=== PATIENT | female | born 1955 | race Caucasian/White ===

== ENCOUNTER → 2018-06-23 09:17 | Outpatient (CLI) | payer OTHER, SELFPAY ==
[2018-06-23 10:12] LABS: Add Manual Diff / Slide Review NO; Basophils Percent Auto 1.1 % (0-2); Eosinophils Percent Auto 3.8 % (2-4); Hematocrit 42.5 % (36-46); Hemoglobin 14.2 g/dL (12.0-16.0); Lymphocytes Percent Auto 33.3 % (25-40); Mean Corpuscular HGB Conc 33.3 % (30-36); Mean Corpuscular Hemoglobin 30.1 PG (26-34); Mean Corpuscular Volume 90.4 fL (80-100); Monocytes Percent Auto 9.3 % (3-14); Neutrophils Absolute Auto 3100 /uL (3000-5900); Neutrophils Percent Auto 52.5 % (50-75); Platelet Count 325 X10^3/uL (150-400); Red Cell Distribution Width 14.1 % (11.6-14.8); White Blood Cell Count 5.9 X10^3/uL (4.5-11.0)
[2018-06-23 10:27] LABS: Alanine Aminotransferase 26 IU/L (9-52); Albumin 4.7 g/dL (3.5-5.0); Albumin Globulin Ratio 1.9 (1.0-2.8); Alkaline Phosphatase 55 U/L (38-126); Aspartate Aminotransferase 29 IU/L (14-36); BUN Creatinine Ratio 27.1 (6-22); Bilirubin Total 1.4 mg/dL (0.2-1.3); Blood Urea Nitrogen 19 mg/dL (7-17); Calcium 9.9 mg/dL (8.4-10.2); Carbon Dioxide 33 mmol/L (22-32); Chloride 102 mmol/L (98-107); Cholesterol 198 mg/dL (140-199); Estimated Glomerular Filt Rate > 60.0 mL/min (>60); Globulin 2.5 g/dL (1.7-4.1); Glucose 104 mg/dL (80-110); HDL Cholesterol 64 mg/dL (40-60); HEMOLYSIS < 15 (0-50); LDL Cholesterol Calculated 109 mg/dL (<100); Potassium 4.5 mmol/L (3.4-5.1); Sodium 146 mmol/L (137-145); Total Protein 7.2 g/dL (6.3-8.2); Triglycerides 123 mg/dL (35-150)
[2018-06-23 10:40] LABS: Appearance Urine UA CLEAR; Bilirubin Urine UA NEGATIVE (NEGATIVE); Color Urine UA YELLOW; Glucose Urine UA NEGATIVE (Normal); Ketones Urine UA NEGATIVE (NEGATIVE); Leukocyte Esterase Urine UA NEGATIVE (NEGATIVE); Nitrite Urine UA NEGATIVE (Negative); Occult Blood Urine UA NEGATIVE (Negative); Protein Urine UA NEGATIVE (Negative); Specific Gravity Urine UA <=1.005 (1.000-1.035); Urobilinogen Urine UA 0.2 E.U./dL (0.2)
[2018-06-23 10:57] LABS: Thyroid Stimulating Hormone 1.91 uIU/mL (0.47-4.68)
== END ==
PROVIDERS: PCP Family Medicine; Visit Provider Family Medicine
DX: E78.5 Hyperlipidemia, unspecified (principal); Z51.81 Encounter for therapeutic drug level monitoring
CPT/HCPCS: 36415; 80053; 80061; 81003; 84443; 85025

== ENCOUNTER 2018-10-04 09:45 | Outpatient (RCR) | payer OTHER, SELFPAY ==
--- NOTE | 2018-08-25 15:47 | PT.OIE ---
Current Diagnoses Pain in right shoulder (08/25/18) Pain in left shoulder (08/25/18) Pain in right arm (08/25/18) Pain in left arm (08/25/18) Past Medical History (Last Updated 08/10/18 @ 10:04 by MEDARDO Garcia) Obstructive sleep apnea of adult (Chronic ~2017) Primary insomnia (Chronic ~2012) Snoring (Resolved ~2012) Hyperlipidemia (Chronic) History of depression (Suspected) Provider Visit Care Team Role Provider Type Shauna Gomez DO Attending Provider Physician Family Provider Primary Care Provider Specialty: Family Practice Address: [address] [place] [address] Email: [email or web address] Physical Therapy Initial Evaluation PT-OP-A Visit Information Start: 08/25/18 12:00 Freq: Status: Active Protocol: Document 08/25/18 13:00 AMB (Rec: 08/31/18 09:40 AMB [email or web address]) Out-Patient Physical Therapy Visit Information Visit Information Visit Type Initial Evaluation Visit Start Time 13:00 Visit Stop Time 13:45 Total Visit Minutes 45 Visit Number 1 PT-OP-B Current Condition Start: 08/25/18 12:00 Freq: Status: Active Protocol: Document 08/25/18 13:00 AMB (Rec: 08/31/18 13:31 AMB [email or web address]) Current Condition History of Current Condition Onset Date 4 years ago Current Complaints R lateral arm pain with lifting History of Current Condition Rosa reports her arm pain started 4 years ago insidiously. She worked through it by lifting weights, but recently it has worsened. She notices it the most when lifting a suitcase, at night when trying to sleep, and does report sharp pain with brushing her hair. Treatment Goals Patient/Caregiver Goals Lift the arm without it hurting Prior Functional Status Baseline Function- ADL's Independent Baseline Function- Mobility Independent Current Functional Impairments (Reported) Functional Limitations- ADL's brushing her hair is painful with the right arm, sleeping is disrupted. Personal Factors Other Personal Factors That May Effect Right hand dominant with Therapy/Recovery history of R carpal tunnel release years ago PT-OP-C Subjective Start: 08/25/18 12:00 Freq: Status: Active Protocol: Document 08/25/18 13:00 AMB (Rec: 08/31/18 09:40 AMB [email or web address]) Patient Questionnaires Quick Dash- Upper Extremity Quick Dash UE Score 27 Quick Dash UE Impairment 20 to 39% Impaired (Score 20- 39) OP-PT Pain Assessment Location Right Shoulder Intensity 3 Scale Used Numeric (1 - 10) PT-OP-J Posture/Palpation/Skin Start: 08/25/18 12:00 Freq: Status: Active Protocol: Document 08/25/18 13:00 AMB (Rec: 08/31/18 13:41 AMB [email or web address]) Palpation Assessment Location One Palpation Location R shoulder Palpation Details painful with palpation over long head of biceps tendon. No tenderness noted at AC joint, scapula, or lateral point of shoulder. PT-OP-K Range of Motion Start: 08/25/18 12:00 Freq: Status: Active Protocol: Document 08/25/18 13:00 AMB (Rec: 08/31/18 13:41 AMB [email or web address]) Shoulder Goniometric Range of Motion Shoulder Measured in Degrees Right Passive Shoulder ROM WFL Yes PT-OP-L Special Tests Start: 08/25/18 12:00 Freq: Status: Active Protocol: Document 08/25/18 13:00 AMB (Rec: 08/31/18 13:41 AMB [email or web address]) Special Tests Shoulder Special Tests Empty Can Test Results negative bilaterally Emerson Emmett Impingement Test Results positive on the right PT-OP-M Strength Start: 08/25/18 12:00 Freq: Status: Active Protocol: Document 08/25/18 13:00 AMB (Rec: 08/31/18 13:41 AMB [email or web address]) Shoulder Strength Shoulder Manual Muscle Testing Right Flexion 3+ Fair+ Extension 5 Normal Abduction (C5) 4 Good External Rotation 3+ Fair+ Internal Rotation 5 Normal PT-OP-Q Treatments Start: 08/25/18 12:00 Freq: Status: Active Protocol: Document 08/25/18 13:00 AMB (Rec: 08/31/18 09:46 AMB [email or web address]) Therapeutic Exercises Prone Exercises 1 Prone Exercise Name Y Resistance 1# Reps/Minutes 10 Standing Exercises 2 Standing Exercise Name ER isometric Reps/Minutes 5x5 1 Standing Exercise Name bicep curl Reps/Minutes 10 PT-OP-T Assessment and Plan Start: 08/25/18 12:00 Freq: Status: Active Protocol: Document 08/25/18 13:00 AMB (Rec: 09/01/18 15:45 AMB [email or web address]) Physical Therapy Assessment Rehab Potential Rehabilitation Potential Good Evaluation Complexity Number of Personal Factors/Comorbidities 1-2 Number of Body Systems Impaired 3 Clinical Presentation at Evaluation Evolving Impairments Impairments Functional Activities Pain Strength Goals Three Impairment ADLs Short Term Goal (STG) Rosa will brush her hair with her right arm without an increase in pain. STG Duration 4 weeks Long-Term Goal (LTG) Rosa will sleep for 6 hours without waking up due to arm pain. LTG Duration 8 weeks Two Impairment Pain with lifting Long-Term Goal (LTG) Rosa will lift 20 pounds with good body mechanics with 2/10 pain or less. LTG Duration 8 weeks One Impairment Strength Short Term Goal (STG) Rosa will increase her shoulder strength to 4+/5 in all planes. STG Duration 4 weeks Assessment Summary Assessment Rosa presents with signs of shoulder impingement with weakness and pain with shoulder flexion and external rotation. Her arm pain as she describes it is likely radiating from the dysfunction at her shoulder. She will benefit from PT to strengthen her shoulder so she can return to lifting and sleeping without pain. Physical Therapy Plan Frequency and Duration Frequency of Treatment 1x/Week Duration of Treatment 8 weeks Plan of Care Start Date 08/25/18 Plan of Care End Date 10/20/18 Therapeutic Interventions Therapeutic Interventions Home Exercise Program Manual Therapy Neuromuscular Re-education Self-Care/Home Management Taping Therapeutic Activities Therapeutic Exercises Modalities Cold Pack/Ice Massage Electric Stimulation Hot Packs Next Visit Focus/Plan Next Note Type Treatment Note Next Visit Plan Progress shoulder strengthening
--- NOTE | 2018-08-25 15:48 | PT.OPPOC ---
Current Diagnoses Pain in right shoulder (08/25/18) Pain in left shoulder (08/25/18) Pain in right arm (08/25/18) Pain in left arm (08/25/18) Provider Visit Care Team Role Provider Type Shauna Gomez DO Attending Provider Physician Family Provider Primary Care Provider Specialty: Family Practice Address: [address] [place] [address], [id number] Email: [email or web address] Plan Of Care PT-OP-T Assessment and Plan Start: 08/25/18 12:00 Freq: Status: Active Protocol: Document 08/25/18 13:00 AMB (Rec: 09/01/18 15:45 AMB [email or web address]) Physical Therapy Assessment Rehab Potential Rehabilitation Potential Good Evaluation Complexity Number of Personal Factors/Comorbidities 1-2 Number of Body Systems Impaired 3 Clinical Presentation at Evaluation Evolving Impairments Impairments Functional Activities Pain Strength Goals Three Impairment ADLs Short Term Goal (STG) Rosa will brush her hair with her right arm without an increase in pain. STG Duration 4 weeks Jail Goal (LTG) Rosa will sleep for 6 hours without waking up due to arm pain. LTG Duration 8 weeks Two Impairment Pain with lifting Auto Body Man Goal (LTG) Rsoa will lift 20 pounds with good body mechanics with 2/10 pain or less. LTG Duration 8 weeks One Impairment Strength Short Term Goal (STG) Rosa will increase her shoulder strength to 4+/5 in all planes. STG Duration 4 weeks Assessment Summary Assessment Rosa presents with signs of shoulder impingement with weakness and pain with shoulder flexion and external rotation. Her arm pain as she describes it is likely radiating from the dysfunction at her shoulder. She will benefit from PT to strengthen her shoulder so she can return to lifting and sleeping without pain. Physical Therapy Plan Frequency and Duration Frequency of Treatment 1x/Week Duration of Treatment 8 weeks Plan of Care Start Date 08/25/18 Plan of Care End Date 10/20/18 Therapeutic Interventions Therapeutic Interventions Home Exercise Program Manual Therapy Neuromuscular Re-education Self-Care/Home Management Taping Therapeutic Activities Therapeutic Exercises Modalities Cold Pack/Ice Massage Electric Stimulation Hot Packs Next Visit Focus/Plan Next Note Type Treatment Note Next Visit Plan Progress shoulder strengthening Plan of Care Dates Plan of Care Start Date 08/25/18 Plan of Care End Date 10/20/18 Please Sign and Return: I have reviewed this Plan of Care and certify that the skilled therapy services above are required to meet the patient?s needs. Physician Signature Date Printed Name and Credentials Clinical Instructor Signature Printed Name and Credentials
--- NOTE | 2018-09-06 15:47 | PT.OTN ---
Current Diagnoses Pain in right shoulder (09/06/18) Pain in left shoulder (09/06/18) Pain in right arm (09/06/18) Pain in left arm (09/06/18) Physical Therapy Treatment Note PT-OP-A Visit Information Start: 08/25/18 12:00 Freq: Status: Active Protocol: Document 09/06/18 07:30 AMB (Rec: 09/06/18 08:48 AMB [email or web address]) Out-Patient Physical Therapy Visit Information Visit Information Visit Type Treatment Note Visit Start Time 07:30 Visit Stop Time 08:15 Total Visit Minutes 45 Visit Number 2 PT-OP-B Current Condition Start: 08/25/18 12:00 Freq: Status: Active Protocol: Document 08/25/18 13:00 AMB (Rec: 08/31/18 13:31 AMB [email or web address]) Current Condition History of Current Condition Onset Date 4 years ago Current Complaints R lateral arm pain with lifting History of Current Condition Rosa reports her arm pain started 4 years ago insidiously. She worked through it by lifting weights, but recently it has worsened. She notices it the most when lifting a suitcase, at night when trying to sleep, and does report sharp pain with brushing her hair. Treatment Goals Patient/Caregiver Goals Lift the arm without it hurting Prior Functional Status Baseline Function- ADL's Independent Baseline Function- Mobility Independent Current Functional Impairments (Reported) Functional Limitations- ADL's brushing her hair is painful with the right arm, sleeping is disrupted. Personal Factors Other Personal Factors That May Effect Right hand dominant with Therapy/Recovery history of R carpal tunnel release years ago PT-OP-C Subjective Start: 08/25/18 12:00 Freq: Status: Active Protocol: Document 09/06/18 07:30 AMB (Rec: 09/06/18 08:48 AMB [email or web address]) OP-PT Subjective Patient Comments Patient Comments Pt reports prone Y exercise is a bit painful PT-OP-J Posture/Palpation/Skin Start: 08/25/18 12:00 Freq: Status: Active Protocol: Document 08/25/18 13:00 AMB (Rec: 08/31/18 13:41 AMB [email or web address]) Palpation Assessment Location One Palpation Location R shoulder Palpation Details painful with palpation over long head of biceps tendon. No tenderness noted at AC joint, scapula, or lateral point of shoulder. PT-OP-K Range of Motion Start: 08/25/18 12:00 Freq: Status: Active Protocol: Document 08/25/18 13:00 AMB (Rec: 08/31/18 13:41 AMB [email or web address]) Shoulder Goniometric Range of Motion Shoulder Measured in Degrees Right Passive Shoulder ROM WFL Yes PT-OP-L Special Tests Start: 08/25/18 12:00 Freq: Status: Active Protocol: Document 08/25/18 13:00 AMB (Rec: 08/31/18 13:41 AMB [email or web address]) Special Tests Shoulder Special Tests Empty Can Test Results negative bilaterally Emerson Emmett Impingement Test Results positive on the right PT-OP-M Strength Start: 08/25/18 12:00 Freq: Status: Active Protocol: Document 08/25/18 13:00 AMB (Rec: 08/31/18 13:41 AMB [email or web address]) Shoulder Strength Shoulder Manual Muscle Testing Right Flexion 3+ Fair+ Extension 5 Normal Abduction (C5) 4 Good External Rotation 3+ Fair+ Internal Rotation 5 Normal PT-OP-Q Treatments Start: 08/25/18 12:00 Freq: Status: Active Protocol: Document 09/06/18 07:30 AMB (Rec: 09/07/18 15:47 AMB [email or web address]) Therapeutic Exercises Sidelying Exercises 2 Sidelying Exercise Name abd AROM Reps/Minutes 2x10 1 Sidelying Exercise Name ER AROM Reps/Minutes 2x10 Standing Exercises 4 Standing Exercise Name shoulder flexion Reps/Minutes 2x10 3 Standing Exercise Name rows Resistance #3 t band Reps/Minutes 2x10 1 Standing Exercise Name bicep curl Reps/Minutes 10 Manual Therapy Treatment Soft Tissue Mobilization 1 Body Location shoulder Mobilization Type Myofascial Release Comments lateral shoulder, biceps tendon, deltoid PT-OP-T Assessment and Plan Start: 08/25/18 12:00 Freq: Status: Active Protocol: Document 09/06/18 07:30 AMB (Rec: 09/07/18 15:47 AMB [email or web address]) Physical Therapy Assessment Assessment Summary Assessment Pt needed modifications to be able to do exercises without significant increase in pain. Physical Therapy Plan Next Visit Focus/Plan Next Note Type Treatment Note Next Visit Plan Progress shoulder strengthening as tolerated.
--- NOTE | 2018-09-21 10:09 | PT.OTN ---
Current Diagnoses Pain in right shoulder (09/20/18) Pain in left shoulder (09/20/18) Pain in right arm (09/20/18) Pain in left arm (09/20/18) Physical Therapy Treatment Note PT-OP-A Visit Information Start: 08/25/18 12:00 Freq: Status: Active Protocol: Document 09/20/18 13:00 AMB (Rec: 09/20/18 13:19 AMB [email or web address]) Out-Patient Physical Therapy Visit Information Visit Information Visit Type Treatment Note Visit Start Time 13:00 Visit Stop Time 13:45 Total Visit Minutes 45 Visit Number 3 PT-OP-B Current Condition Start: 08/25/18 12:00 Freq: Status: Active Protocol: Document 08/25/18 13:00 AMB (Rec: 08/31/18 13:31 AMB [email or web address]) Current Condition History of Current Condition Onset Date 4 years ago Current Complaints R lateral arm pain with lifting History of Current Condition Rosa reports her arm pain started 4 years ago insidiously. She worked through it by lifting weights, but recently it has worsened. She notices it the most when lifting a suitcase, at night when trying to sleep, and does report sharp pain with brushing her hair. Treatment Goals Patient/Caregiver Goals Lift the arm without it hurting Prior Functional Status Baseline Function- ADL's Independent Baseline Function- Mobility Independent Current Functional Impairments (Reported) Functional Limitations- ADL's brushing her hair is painful with the right arm, sleeping is disrupted. Personal Factors Other Personal Factors That May Effect Right hand dominant with Therapy/Recovery history of R carpal tunnel release years ago PT-OP-C Subjective Start: 08/25/18 12:00 Freq: Status: Active Protocol: Document 09/20/18 13:00 AMB (Rec: 09/21/18 09:37 AMB [id number]) OP-PT Subjective Patient Comments Patient Comments Pt is getting worse but not sure if better or just the same. PT-OP-J Posture/Palpation/Skin Start: 08/25/18 12:00 Freq: Status: Active Protocol: Document 08/25/18 13:00 AMB (Rec: 08/31/18 13:41 AMB [email or web address]) Palpation Assessment Location One Palpation Location R shoulder Palpation Details painful with palpation over long head of biceps tendon. No tenderness noted at AC joint, scapula, or lateral point of shoulder. PT-OP-K Range of Motion Start: 08/25/18 12:00 Freq: Status: Active Protocol: Document 08/25/18 13:00 AMB (Rec: 08/31/18 13:41 AMB [email or web address]) Shoulder Goniometric Range of Motion Shoulder Measured in Degrees Right Passive Shoulder ROM WFL Yes PT-OP-L Special Tests Start: 08/25/18 12:00 Freq: Status: Active Protocol: Document 08/25/18 13:00 AMB (Rec: 08/31/18 13:41 AMB [email or web address]) Special Tests Shoulder Special Tests Empty Can Test Results negative bilaterally Emerson Emmett Impingement Test Results positive on the right PT-OP-M Strength Start: 08/25/18 12:00 Freq: Status: Active Protocol: Document 08/25/18 13:00 AMB (Rec: 08/31/18 13:41 AMB [email or web address]) Shoulder Strength Shoulder Manual Muscle Testing Right Flexion 3+ Fair+ Extension 5 Normal Abduction (C5) 4 Good External Rotation 3+ Fair+ Internal Rotation 5 Normal PT-OP-Q Treatments Start: 08/25/18 12:00 Freq: Status: Active Protocol: Document 09/20/18 13:00 AMB (Rec: 09/21/18 10:09 AMB [email or web address]) Therapeutic Exercises Supine Exercises 1 Supine Exercise Name scapular punch Reps/Minutes 10 Sidelying Exercises 2 Sidelying Exercise Name abd AROM Reps/Minutes 2x10 1 Sidelying Exercise Name ER AROM Reps/Minutes 2x10 Standing Exercises 5 Standing Exercise Name shoulder extension Resistance #2 t band 3 Standing Exercise Name rows Resistance #3 t band Reps/Minutes 2x10 1 Standing Exercise Name bicep curl Resistance 3# Reps/Minutes 10 Manual Therapy Treatment Soft Tissue Mobilization 1 Body Location shoulder Mobilization Type Myofascial Release Comments lateral shoulder, biceps tendon, deltoid Taping 1 Body Location R shoulder Type of Tape Kinesio Tape Comments Y and I PT-OP-T Assessment and Plan Start: 08/25/18 12:00 Freq: Status: Active Protocol: Document 09/20/18 13:00 AMB (Rec: 09/21/18 10:09 AMB [email or web address]) Physical Therapy Assessment Assessment Summary Assessment Pt with better tolerance of scapular stabilization exercises. Physical Therapy Plan Next Visit Focus/Plan Next Note Type Treatment Note Next Visit Plan Progress shoulder strengthening as tolerated.
--- NOTE | 2018-09-28 14:38 | PT.OTN ---
Current Diagnoses Pain in right shoulder (09/28/18) Pain in left shoulder (09/28/18) Pain in right arm (09/28/18) Pain in left arm (09/28/18) Physical Therapy Treatment Note PT-OP-A Visit Information Start: 08/25/18 12:00 Freq: Status: Active Protocol: Document 09/28/18 11:15 AMB (Rec: 09/28/18 14:38 AMB [email or web address]) Out-Patient Physical Therapy Visit Information Visit Information Visit Type Treatment Note Visit Start Time 13:00 Visit Stop Time 13:45 Total Visit Minutes 45 Visit Number 4 PT-OP-B Current Condition Start: 08/25/18 12:00 Freq: Status: Active Protocol: Document 08/25/18 13:00 AMB (Rec: 08/31/18 13:31 AMB [email or web address]) Current Condition History of Current Condition Onset Date 4 years ago Current Complaints R lateral arm pain with lifting History of Current Condition Rosa reports her arm pain started 4 years ago insidiously. She worked through it by lifting weights, but recently it has worsened. She notices it the most when lifting a suitcase, at night when trying to sleep, and does report sharp pain with brushing her hair. Treatment Goals Patient/Caregiver Goals Lift the arm without it hurting Prior Functional Status Baseline Function- ADL's Independent Baseline Function- Mobility Independent Current Functional Impairments (Reported) Functional Limitations- ADL's brushing her hair is painful with the right arm, sleeping is disrupted. Personal Factors Other Personal Factors That May Effect Right hand dominant with Therapy/Recovery history of R carpal tunnel release years ago PT-OP-C Subjective Start: 08/25/18 12:00 Freq: Status: Active Protocol: Document 09/28/18 11:15 AMB (Rec: 09/28/18 14:38 AMB [email or web address]) OP-PT Subjective Patient Comments Patient Comments Pt worried about what is really going on inside shoulder. PT-OP-J Posture/Palpation/Skin Start: 08/25/18 12:00 Freq: Status: Active Protocol: Document 08/25/18 13:00 AMB (Rec: 08/31/18 13:41 AMB [email or web address]) Palpation Assessment Location One Palpation Location R shoulder Palpation Details painful with palpation over long head of biceps tendon. No tenderness noted at AC joint, scapula, or lateral point of shoulder. PT-OP-K Range of Motion Start: 08/25/18 12:00 Freq: Status: Active Protocol: Document 08/25/18 13:00 AMB (Rec: 08/31/18 13:41 AMB [email or web address]) Shoulder Goniometric Range of Motion Shoulder Measured in Degrees Right Passive Shoulder ROM WFL Yes PT-OP-L Special Tests Start: 08/25/18 12:00 Freq: Status: Active Protocol: Document 08/25/18 13:00 AMB (Rec: 08/31/18 13:41 AMB [email or web address]) Special Tests Shoulder Special Tests Empty Can Test Results negative bilaterally Emerson Emmett Impingement Test Results positive on the right PT-OP-M Strength Start: 08/25/18 12:00 Freq: Status: Active Protocol: Document 08/25/18 13:00 AMB (Rec: 08/31/18 13:41 AMB [email or web address]) Shoulder Strength Shoulder Manual Muscle Testing Right Flexion 3+ Fair+ Extension 5 Normal Abduction (C5) 4 Good External Rotation 3+ Fair+ Internal Rotation 5 Normal PT-OP-Q Treatments Start: 08/25/18 12:00 Freq: Status: Active Protocol: Document 09/28/18 11:15 AMB (Rec: 09/28/18 14:38 AMB [email or web address]) Therapeutic Exercises Prone Exercises 1 Prone Exercise Name I, H, W Resistance AROM only Reps/Minutes 3x10 Standing Exercises 5 Standing Exercise Name shoulder extension Resistance #2 t band 4 Standing Exercise Name shoulder flexion Resistance #1 band Reps/Minutes 2x10 3 Standing Exercise Name rows Resistance #3 t band Reps/Minutes 2x10 2 Standing Exercise Name D2 extension Reps/Minutes 2x10 Manual Therapy Treatment Soft Tissue Mobilization 1 Body Location shoulder Mobilization Type Myofascial Release Comments lateral shoulder, biceps tendon, deltoid Taping 1 Body Location R shoulder Type of Tape Kinesio Tape Comments Y and I PT-OP-T Assessment and Plan Start: 08/25/18 12:00 Freq: Status: Active Protocol: Document 09/28/18 11:15 AMB (Rec: 09/28/18 14:38 AMB [email or web address]) Physical Therapy Assessment Assessment Summary Assessment Pt encouraged to modify ROM of exercises to tolerate strengthening without pain. Physical Therapy Plan Next Visit Focus/Plan Next Note Type Treatment Note Next Visit Plan Progress shoulder strengthening as tolerated.
--- NOTE | 2018-10-04 13:34 | PT.OTN ---
Current Diagnoses Pain in right shoulder (10/04/18) Pain in left shoulder (10/04/18) Pain in right arm (10/04/18) Pain in left arm (10/04/18) Physical Therapy Treatment Note PT-OP-A Visit Information Start: 08/25/18 12:00 Freq: Status: Active Protocol: Document 10/04/18 09:45 AMB (Rec: 10/04/18 13:32 AMB [email or web address]) Out-Patient Physical Therapy Visit Information Visit Information Visit Type Treatment Note PT-OP-B Current Condition Start: 08/25/18 12:00 Freq: Status: Active Protocol: Document 08/25/18 13:00 AMB (Rec: 08/31/18 13:31 AMB [email or web address]) Current Condition History of Current Condition Onset Date 4 years ago Current Complaints R lateral arm pain with lifting History of Current Condition Rosa reports her arm pain started 4 years ago insidiously. She worked through it by lifting weights, but recently it has worsened. She notices it the most when lifting a suitcase, at night when trying to sleep, and does report sharp pain with brushing her hair. Treatment Goals Patient/Caregiver Goals Lift the arm without it hurting Prior Functional Status Baseline Function- ADL's Independent Baseline Function- Mobility Independent Current Functional Impairments (Reported) Functional Limitations- ADL's brushing her hair is painful with the right arm, sleeping is disrupted. Personal Factors Other Personal Factors That May Effect Right hand dominant with Therapy/Recovery history of R carpal tunnel release years ago PT-OP-C Subjective Start: 08/25/18 12:00 Freq: Status: Active Protocol: Document 10/04/18 09:45 AMB (Rec: 10/04/18 13:34 AMB [email or web address]) OP-PT Subjective Patient Comments Patient Comments Pt continues to note pain with sleeping. Mid range pain so that overhead activities hurt, but if she keeps the arm close to her torso it's ok. PT-OP-J Posture/Palpation/Skin Start: 08/25/18 12:00 Freq: Status: Active Protocol: Document 08/25/18 13:00 AMB (Rec: 08/31/18 13:41 AMB [email or web address]) Palpation Assessment Location One Palpation Location R shoulder Palpation Details painful with palpation over long head of biceps tendon. No tenderness noted at AC joint, scapula, or lateral point of shoulder. PT-OP-K Range of Motion Start: 08/25/18 12:00 Freq: Status: Active Protocol: Document 08/25/18 13:00 AMB (Rec: 08/31/18 13:41 AMB [email or web address]) Shoulder Goniometric Range of Motion Shoulder Measured in Degrees Right Passive Shoulder ROM WFL Yes PT-OP-L Special Tests Start: 08/25/18 12:00 Freq: Status: Active Protocol: Document 08/25/18 13:00 AMB (Rec: 08/31/18 13:41 AMB [email or web address]) Special Tests Shoulder Special Tests Empty Can Test Results negative bilaterally Emerson Emmett Impingement Test Results positive on the right PT-OP-M Strength Start: 08/25/18 12:00 Freq: Status: Active Protocol: Document 10/04/18 09:45 AMB (Rec: 10/04/18 13:34 AMB [email or web address]) Shoulder Strength Shoulder Manual Muscle Testing Right Flexion 4 Good Extension 5 Normal Abduction (C5) 4 Good External Rotation 4- Good- Internal Rotation 5 Normal PT-OP-Q Treatments Start: 08/25/18 12:00 Freq: Status: Active Protocol: Document 10/04/18 09:45 AMB (Rec: 10/04/18 13:32 AMB [email or web address]) Therapeutic Exercises Prone Exercises 1 Prone Exercise Name I, H, W Resistance AROM only Reps/Minutes 3x10 Standing Exercises 5 Standing Exercise Name shoulder extension Resistance #2 t band 3 Standing Exercise Name rows Resistance #3 t band Reps/Minutes 2x10 2 Standing Exercise Name D2 extension Reps/Minutes 2x10 Manual Therapy Treatment Soft Tissue Mobilization 1 Body Location shoulder Mobilization Type Myofascial Release Comments lateral shoulder, biceps tendon, deltoid PT-OP-T Assessment and Plan Start: 08/25/18 12:00 Freq: Status: Active Protocol: Document 10/04/18 09:45 AMB (Rec: 10/04/18 13:32 AMB [email or web address]) Physical Therapy Assessment Goals Three Impairment ADLs Short Term Goal (STG) Rosa will brush her hair with her right arm without an increase in pain. STG Duration NOT MET Nursing Home Goal (LTG) Rosa will sleep for 6 hours without waking up due to arm pain. LTG Duration NOT MET Two Impairment Pain with lifting Nursing Home Goal (LTG) Rosa will lift 20 pounds with good body mechanics with 2/10 pain or less. LTG Duration MET One Impairment Strength Short Term Goal (STG) Rosa will increase her shoulder strength to 4+/5 in all planes. STG Duration NOT MET Assessment Summary Assessment Pt continues to have pain at night. Has been using the pillow and that is helpful but still wakes up. Is doing her exercises, some a little painful, has been changing ROM to try to avoid pain. Physical Therapy Plan Hold Physical Therapy Reason For Hold Pt going to see ortho. Will follow up within the month or d/c at that time. Will continue HEP in interim.
--- NOTE | 2018-11-28 14:29 | PT.OPDS ---
Current Diagnoses Pain in right shoulder (10/04/18) Pain in left shoulder (10/04/18) Pain in right arm (10/04/18) Pain in left arm (10/04/18) Provider Visit Care Team Role Provider Type Shauna Gomez DO Attending Provider Physician Family Provider Primary Care Provider Specialty: Family Practice Address: [address] [place] [address], [id number] Email: [email or web address] Number Visit Number 4 Discharge Summary PT-OP-B Current Condition Start: 08/25/18 12:00 Freq: Status: Active Protocol: Document 08/25/18 13:00 AMB (Rec: 08/31/18 13:31 AMB [email or web address]) Current Condition History of Current Condition Onset Date 4 years ago Current Complaints R lateral arm pain with lifting History of Current Condition Rosa reports her arm pain started 4 years ago insidiously. She worked through it by lifting weights, but recently it has worsened. She notices it the most when lifting a suitcase, at night when trying to sleep, and does report sharp pain with brushing her hair. Treatment Goals Patient/Caregiver Goals Lift the arm without it hurting Prior Functional Status Baseline Function- ADL's Independent Baseline Function- Mobility Independent Current Functional Impairments (Reported) Functional Limitations- ADL's brushing her hair is painful with the right arm, sleeping is disrupted. Personal Factors Other Personal Factors That May Effect Right hand dominant with Therapy/Recovery history of R carpal tunnel release years ago PT-OP-C Subjective Start: 08/25/18 12:00 Freq: Status: Active Protocol: Document 10/04/18 09:45 AMB (Rec: 10/04/18 13:34 AMB [email or web address]) OP-PT Subjective Patient Comments Patient Comments Pt continues to note pain with sleeping. Mid range pain so that overhead activities hurt, but if she keeps the arm close to her torso it's ok. PT-OP-J Posture/Palpation/Skin Start: 08/25/18 12:00 Freq: Status: Active Protocol: Document 08/25/18 13:00 AMB (Rec: 08/31/18 13:41 AMB [email or web address]) Palpation Assessment Location One Palpation Location R shoulder Palpation Details painful with palpation over long head of biceps tendon. No tenderness noted at AC joint, scapula, or lateral point of shoulder. PT-OP-K Range of Motion Start: 08/25/18 12:00 Freq: Status: Active Protocol: Document 08/25/18 13:00 AMB (Rec: 08/31/18 13:41 AMB [email or web address]) Shoulder Goniometric Range of Motion Shoulder Measured in Degrees Right Passive Shoulder ROM WFL Yes PT-OP-L Special Tests Start: 08/25/18 12:00 Freq: Status: Active Protocol: Document 08/25/18 13:00 AMB (Rec: 08/31/18 13:41 AMB [email or web address]) Special Tests Shoulder Special Tests Empty Can Test Results negative bilaterally Emerson Emmett Impingement Test Results positive on the right PT-OP-M Strength Start: 08/25/18 12:00 Freq: Status: Active Protocol: Document 10/04/18 09:45 AMB (Rec: 10/04/18 13:34 AMB [email or web address]) Shoulder Strength Shoulder Manual Muscle Testing Right Flexion 4 Good Extension 5 Normal Abduction (C5) 4 Good External Rotation 4- Good- Internal Rotation 5 Normal PT-OP-T Assessment and Plan Start: 08/25/18 12:00 Freq: Status: Active Protocol: Document 11/28/18 14:26 AMB (Rec: 11/28/18 14:29 AMB [email or web address]) Physical Therapy Assessment Goals Three Impairment ADLs Short Term Goal (STG) Rosa will brush her hair with her right arm without an increase in pain. STG Duration NOT MET Accounts Payable Accountant Goal (LTG) Rosa will sleep for 6 hours without waking up due to arm pain. LTG Duration NOT MET Two Impairment Pain with lifting Accounts Payable Accountant Goal (LTG) Rosa will lift 20 pounds with good body mechanics with 2/10 pain or less. LTG Duration MET One Impairment Strength Short Term Goal (STG) Rosa will increase her shoulder strength to 4+/5 in all planes. STG Duration NOT MET Assessment Summary Assessment Rosa attended 5 visits of physical therapy, and then was going to see an orthopedist because she contineus to have pain at night. She was going to continue her HEP until then , but has not been seen in 2 months, and is therefore discharged. Physical Therapy Plan Discharge Physical Therapy Discharge Reasons No Longer Attending PT
== END 2018-11-28 16:35 | disposition home or self-care (01) ==
LOC: PHYS 09:45
PROVIDERS: Family Provider Family Medicine; PCP Family Medicine; Visit Provider Family Medicine
DX: M25.511 Pain in right shoulder (principal); M25.512 Pain in left shoulder; M79.601 Pain in right arm; M79.602 Pain in left arm
CPT/HCPCS: 97110; 97140; 97161

== ENCOUNTER → 2019-03-21 09:46 | Outpatient (CLI) | payer OTHER, SELFPAY ==
[2019-03-21 11:04] LABS: Alanine Aminotransferase 29 IU/L (9-52); Albumin 4.5 g/dL (3.5-5.0); Albumin Globulin Ratio 1.9 (1.0-2.8); Alkaline Phosphatase 56 U/L (38-126); Aspartate Aminotransferase 29 IU/L (14-36); BUN Creatinine Ratio 25.7 (6-22); Bilirubin Total 1.2 mg/dL (0.2-1.3); Blood Urea Nitrogen 18 mg/dL (7-17); Calcium 10.1 mg/dL (8.4-10.2); Carbon Dioxide 30 mmol/L (22-32); Chloride 102 mmol/L (98-107); Cholesterol 206 mg/dL (140-199); Estimated Glomerular Filt Rate > 60.0 mL/min (>60); Globulin 2.4 g/dL (1.7-4.1); Glucose 102 mg/dL (80-110); HDL Cholesterol 58 mg/dL (40-60); HEMOLYSIS < 15 (0-50); LDL Cholesterol Calculated 119 mg/dL (<100); Potassium 5.1 mmol/L (3.4-5.1); Sodium 140 mmol/L (137-145); Total Protein 6.9 g/dL (6.3-8.2); Triglycerides 146 mg/dL (35-150)
== END ==
PROVIDERS: PCP Family Medicine; Visit Provider Family Medicine
DX: E78.5 Hyperlipidemia, unspecified (principal); Z51.81 Encounter for therapeutic drug level monitoring
CPT/HCPCS: 36415; 80053; 80061

== ENCOUNTER 2019-05-03 14:30 | Outpatient (RCR) | payer MEDICARE, OTHER, SELFPAY ==
--- NOTE | 2019-03-29 16:45 | PT.OIE ---
Current Diagnoses Impingement syndrome of right shoulder (03/29/19) Bursitis of right shoulder (03/29/19) Past Medical History (Last Reviewed 02/25/19 @ 16:10 by MEDARDO Garcia) Obstructive sleep apnea of adult (Chronic ~2017) Primary insomnia (Chronic ~2012) Snoring (Resolved ~2012) Hyperlipidemia (Chronic) History of depression (Suspected) Provider Visit Care Team Role Provider Type Shauna Gomez DO Primary Care Provider Physician Specialty: Family Practice Address: [address] [place] [address], [id number] Email: [email or web address] Mirza Gaona MD Attending Provider Physician Specialty: Orthopedic Surgery Address: [address] [place] [address], [id number] Email: [email or web address] Physical Therapy Initial Evaluation PT-OP-A Visit Information Start: 03/29/19 07:34 Freq: Status: Active Protocol: Document 03/29/19 09:00 AMB (Rec: 03/29/19 16:44 AMB [email or web address]) Out-Patient Physical Therapy Visit Information Visit Information Visit Type Initial Evaluation Visit Start Time 09:00 Visit Stop Time 09:45 Total Visit Minutes 45 Visit Number 1 PT-OP-B Current Condition Start: 03/29/19 07:34 Freq: Status: Active Protocol: Document 03/29/19 09:00 AMB (Rec: 03/29/19 16:44 AMB [email or web address]) Current Condition History of Current Condition Onset Date 02/13/19 Current Complaints s/p right rotator cuff repair History of Current Condition Rosa had a right rotator cuff repair on 02/13/19. She wore a sling for 6 weeks, and is coming to therapy to learn ways to strengthen her shoulder. She will be going on a 1 month long boating trip in a few weeks, so she is looking for things she can do herself. She knows she is not allowed to lift anything at this time. Her prescription says begin passive and active range of motion. Treatment Goals Patient/Caregiver Goals lift arm/ lift luggage without pain Current Functional Impairments (Reported) Functional Limitations- ADL's difficulty brushing her hair, using the arm to cook, clean, dress. Personal Factors Other Personal Factors That May Effect Going on a boating trip, so Therapy/Recovery will not have consistent PT. PT-OP-C Subjective Start: 03/29/19 07:34 Freq: Status: Active Protocol: Document 03/29/19 09:00 AMB (Rec: 03/29/19 16:44 AMB [email or web address]) Patient Questionnaires Quick Dash- Upper Extremity Quick Dash UE Score 57 OP-PT Pain Assessment Location Right Shoulder Intensity 3 PT-OP-K Range of Motion Start: 03/29/19 07:34 Freq: Status: Active Protocol: Document 03/29/19 09:00 AMB (Rec: 03/29/19 16:44 AMB [email or web address]) Shoulder Goniometric Range of Motion Shoulder Left Active Shoulder ROM WFL Yes Right Active Flexion 40 Abduction 45 Right Passive Testing Position Supine Flexion 120 Abduction 82 External Rotation at 45 degrees 25 Abduction Internal Rotation 45 PT-OP-M Strength Start: 03/29/19 07:34 Freq: Status: Active Protocol: Document 03/29/19 09:00 AMB (Rec: 03/29/19 16:44 AMB [email or web address]) Shoulder Strength Shoulder Manual Muscle Testing Right Flexion 3- Fair- Extension 3 Fair Abduction (C5) 3- Fair- External Rotation 2+ Poor+ Internal Rotation 2+ Poor+ PT-OP-Q Treatments Start: 03/29/19 07:34 Freq: Status: Active Protocol: Document 03/29/19 09:00 AMB (Rec: 03/29/19 16:44 AMB [email or web address]) Therapeutic Exercises Supine Exercises 2 Supine Exercise Name isometrics Reps/Minutes x3 ea, 5 hold Comments flex, ext 1 Supine Exercise Name AAROM with wand Reps/Minutes x3 ea Comments flex, abd, ER PT-OP-T Assessment and Plan Start: 03/29/19 07:34 Freq: Status: Active Protocol: Document 03/29/19 09:00 AMB (Rec: 03/29/19 16:44 AMB [email or web address]) Physical Therapy Assessment Rehab Potential Rehabilitation Potential Fair Evaluation Complexity Number of Personal Factors/Comorbidities 1-2 Number of Body Systems Impaired 4 or More Clinical Presentation at Evaluation Stable Impairments Impairments Pain Posture ROM Strength Goals Four Impairment ROM Short Term Goal (STG) Rosa will improve her passive flexion and abduction to 140 degrees. STG Duration 4 weeks Halfway Goal (LTG) Rosa will improve her active flexion and abduction to 120 degrees. LTG Duration 8 weeks Three Impairment ADLs Short Term Goal (STG) Rosa will brush her hair with her right arm without an increase in pain. STG Duration 4 weeks Halfway Goal (LTG) Rosa will sleep for 6 hours without waking up due to arm pain. LTG Duration 8 weeks Two Impairment Pain with lifting Short Term Goal (STG) Rosa will lift her arm through her full ROM of flexion with pain of 2/10 or less. STG Duration 4 weeks Halfway Goal (LTG) Rosa will lift 20 pounds with good body mechanics with 2/10 pain or less. LTG Duration 8 weeks One Impairment Strength Short Term Goal (STG) Rosa will increase her shoulder strength to 3/5 in all planes. STG Duration 4 weeks Plaster Mechanic Goal (LTG) Rosa will be independent with a ROM and strengthening HEP. LTG Duration 8 weeks Assessment Summary Assessment Rosa attends PT 6 weeks s/p rotator cuff repair. Her pain is under control at this time, but she really hasn't been moving her shoulder much. She was educated in AAROM and isometrics today, and will benefit from continued PT, but she is going to be traveling later in the month and will have fairly sporadic follow up , so this may limit her progression. Physical Therapy Plan Frequency and Duration Frequency of Treatment 2x/Week Duration of Treatment 8 weeks Plan of Care Start Date 03/29/19 Plan of Care End Date 05/24/19 Therapeutic Interventions Therapeutic Interventions Aquatic Therapy Home Exercise Program Joint Mobilizations Manual Therapy Neuromuscular Re-education Self-Care/Home Management Taping Therapeutic Activities Therapeutic Exercises Modalities Cold Pack/Ice Massage Electric Stimulation Hot Packs Next Visit Focus/Plan Next Note Type Treatment Note Next Visit Plan Progress HEP, isometrics, AAROM as tolerated
--- NOTE | 2019-03-29 16:45 | PT.OPPOC ---
Current Diagnoses Impingement syndrome of right shoulder (03/29/19) Bursitis of right shoulder (03/29/19) Provider Visit Care Team Role Provider Type Shauna Gomez DO Primary Care Provider Physician Specialty: Family Practice Address: [address] [place] [address], [id number] Email: [email or web address] Mirza Gaona MD Attending Provider Physician Specialty: Orthopedic Surgery Address: [address] [place] [address], [address] Email: [email or web address] Plan Of Care PT-OP-T Assessment and Plan Start: 03/29/19 07:34 Freq: Status: Active Protocol: Document 03/29/19 09:00 AMB (Rec: 03/29/19 16:44 AMB [email or web address]) Physical Therapy Assessment Rehab Potential Rehabilitation Potential Fair Evaluation Complexity Number of Personal Factors/Comorbidities 1-2 Number of Body Systems Impaired 4 or More Clinical Presentation at Evaluation Stable Impairments Impairments Pain Posture ROM Strength Goals Four Impairment ROM Short Term Goal (STG) Rosa will improve her passive flexion and abduction to 140 degrees. STG Duration 4 weeks Abstract Clerk Goal (LTG) Rosa will improve her active flexion and abduction to 120 degrees. LTG Duration 8 weeks Three Impairment ADLs Short Term Goal (STG) Rosa will brush her hair with her right arm without an increase in pain. STG Duration 4 weeks Snf Goal (LTG) Rosa will sleep for 6 hours without waking up due to arm pain. LTG Duration 8 weeks Two Impairment Pain with lifting Short Term Goal (STG) Rosa will lift her arm through her full ROM of flexion with pain of 2/10 or less. STG Duration 4 weeks Abstract Clerk Goal (LTG) Rosa will lift 20 pounds with good body mechanics with 2/10 pain or less. LTG Duration 8 weeks One Impairment Strength Short Term Goal (STG) Rosa will increase her shoulder strength to 3/5 in all planes. STG Duration 4 weeks Abstract Clerk Goal (LTG) Rosa will be independent with a ROM and strengthening HEP. LTG Duration 8 weeks Assessment Summary Assessment Rosa attends PT 6 weeks s/p rotator cuff repair. Her pain is under control at this time, but she really hasn't been moving her shoulder much. She was educated in AAROM and isometrics today, and will benefit from continued PT, but she is going to be traveling later in the month and will have fairly sporadic follow up , so this may limit her progression. Physical Therapy Plan Frequency and Duration Frequency of Treatment 2x/Week Duration of Treatment 8 weeks Plan of Care Start Date 03/29/19 Plan of Care End Date 05/24/19 Therapeutic Interventions Therapeutic Interventions Aquatic Therapy Home Exercise Program Joint Mobilizations Manual Therapy Neuromuscular Re-education Self-Care/Home Management Taping Therapeutic Activities Therapeutic Exercises Modalities Cold Pack/Ice Massage Electric Stimulation Hot Packs Next Visit Focus/Plan Next Note Type Treatment Note Next Visit Plan Progress HEP, isomtrics, AAROM as tolerated Plan of Care Dates Plan of Care Start Date 03/29/19 Plan of Care End Date 05/24/19 Please Sign and Return: I have reviewed this Plan of Care and certify that the skilled therapy services above are required to meet the patient?s needs. Physician Signature Date Printed Name and Credentials Clinical Instructor Signature Printed Name and Credentials
--- NOTE | 2019-04-03 09:47 | PT.OTN ---
Current Diagnoses Impingement syndrome of right shoulder (04/03/19) Bursitis of right shoulder (04/03/19) Physical Therapy Treatment Note PT-OP-A Visit Information Start: 03/29/19 07:34 Freq: Status: Active Protocol: Document 04/03/19 08:55 HH (Rec: 04/03/19 09:47 HH [email or web address]) Out-Patient Physical Therapy Visit Information Visit Information Visit Type Treatment Note Visit Start Time 08:55 Visit Stop Time 09:40 Total Visit Minutes 45 Visit Number 2 Number of EXECUTIVE CONSULTANT Visits 0 PT-OP-B Current Condition Start: 03/29/19 07:34 Freq: Status: Active Protocol: Document 03/29/19 09:00 AMB (Rec: 03/29/19 16:44 AMB [email or web address]) Current Condition History of Current Condition Onset Date 02/13/19 Current Complaints s/p right rotator cuff repair History of Current Condition Rosa had a right rotator cuff repair on 02/13/19. She wore a sling for 6 weeks, and is coming to therapy to learn ways to strengthen her shoulder. She will be going on a 1 month long boating trip in a few weeks, so she is looking for things she can do herself. She knows she is not allowed to lift anything at this time. Her prescription says begin passive and active range of motion. Treatment Goals Patient/Caregiver Goals lift arm/ lift luggage without pain Current Functional Impairments (Reported) Functional Limitations- ADL's difficulty brushing her hair, using the arm to cook, clean, dress. Personal Factors Other Personal Factors That May Effect Going on a boating trip, so Therapy/Recovery will not have consistent PT. PT-OP-C Subjective Start: 03/29/19 07:34 Freq: Status: Active Protocol: Document 04/03/19 08:55 HH (Rec: 04/03/19 09:47 HH [email or web address]) OP-PT Subjective Patient Comments Patient Comments Jaz been doing my HEP but i still cant lift my R arm to wash my head. I am able to hold my cup now but not overhead. Patient Reported Progress Improving PT-OP-K Range of Motion Start: 03/29/19 07:34 Freq: Status: Active Protocol: Document 03/29/19 09:00 AMB (Rec: 03/29/19 16:44 AMB [email or web address]) Shoulder Goniometric Range of Motion Shoulder Left Active Shoulder ROM WFL Yes Right Active Flexion 40 Abduction 45 Right Passive Testing Position Supine Flexion 120 Abduction 82 External Rotation at 45 degrees 25 Abduction Internal Rotation 45 PT-OP-M Strength Start: 03/29/19 07:34 Freq: Status: Active Protocol: Document 03/29/19 09:00 AMB (Rec: 03/29/19 16:44 AMB [email or web address]) Shoulder Strength Shoulder Manual Muscle Testing Right Flexion 3- Fair- Extension 3 Fair Abduction (C5) 3- Fair- External Rotation 2+ Poor+ Internal Rotation 2+ Poor+ PT-OP-Q Treatments Start: 03/29/19 07:34 Freq: Status: Active Protocol: Document 04/03/19 08:55 HH (Rec: 04/03/19 09:47 HH [email or web address]) Therapeutic Exercises Supine Exercises 2 Supine Exercise Name isometrics Equipment Used wall Reps/Minutes x3 ea, 10 hold Comments flex, ext, abd (at neutral) 1 Supine Exercise Name AAROM with wand Reps/Minutes x3 ea Comments flex, abd, ER Sitting Exercises overhead acosta Sitting Exercise Name AAROM Side bilateral Comments flex, abd Standing Exercises shd shrug and depression Side bilateral Equipment Used PVC pipe Reps/Minutes 10 x2 shd ext Equipment Used PVC pipe Reps/Minutes 8 x 2 Comments cues on neutral spine wall climb Side bilateral Reps/Minutes 8 x 2 scap retraction Equipment Used lvl 2 band Reps/Minutes 8 x 2 Comments 3 sec hold PT-OP-T Assessment and Plan Start: 03/29/19 07:34 Freq: Status: Active Protocol: Document 04/03/19 08:55 HH (Rec: 04/03/19 09:47 HH [email or web address]) Physical Therapy Assessment Assessment Summary Assessment Pt improves very well with increased AAROM/AROM shd flexion up to ~110 degrees. Focused on AAROM and wall climb today with cues on movement isolation without trunk movements. Denies discomfort and new HEP are given with wall climb and scap retraction with lvl 2 band. Physical Therapy Plan Next Visit Focus/Plan Next Note Type Treatment Note Next Visit Plan review and Progress HEP, isomtrics, AAROM as tolerated UBE as elaine
--- NOTE | 2019-04-05 13:33 | PT.OTN ---
Current Diagnoses Impingement syndrome of right shoulder (04/05/19) Bursitis of right shoulder (04/05/19) Physical Therapy Treatment Note PT-OP-A Visit Information Start: 03/29/19 07:34 Freq: Status: Active Protocol: Document 04/05/19 09:45 AMB (Rec: 04/05/19 10:26 AMB [email or web address]) Out-Patient Physical Therapy Visit Information Visit Information Visit Type Treatment Note Visit Start Time 09:45 Visit Stop Time 10:25 Total Visit Minutes 40 Visit Number 3 Number of WORM PACKER Visits 0 PT-OP-B Current Condition Start: 03/29/19 07:34 Freq: Status: Active Protocol: Document 03/29/19 09:00 AMB (Rec: 03/29/19 16:44 AMB [email or web address]) Current Condition History of Current Condition Onset Date 02/13/19 Current Complaints s/p right rotator cuff repair History of Current Condition Rosa had a right rotator cuff repair on 02/13/19. She wore a sling for 6 weeks, and is coming to therapy to learn ways to strengthen her shoulder. She will be going on a 1 month long boating trip in a few weeks, so she is looking for things she can do herself. She knows she is not allowed to lift anything at this time. Her prescription says begin passive and active range of motion. Treatment Goals Patient/Caregiver Goals lift arm/ lift luggage without pain Current Functional Impairments (Reported) Functional Limitations- ADL's difficulty brushing her hair, using the arm to cook, clean, dress. Personal Factors Other Personal Factors That May Effect Going on a boating trip, so Therapy/Recovery will not have consistent PT. PT-OP-C Subjective Start: 03/29/19 07:34 Freq: Status: Active Protocol: Document 04/05/19 09:45 AMB (Rec: 04/05/19 10:26 AMB [email or web address]) OP-PT Subjective Patient Comments Patient Comments Pt felt good on Tuesday but yesterday was a bit sore. PT-OP-K Range of Motion Start: 03/29/19 07:34 Freq: Status: Active Protocol: Document 03/29/19 09:00 AMB (Rec: 03/29/19 16:44 AMB [email or web address]) Shoulder Goniometric Range of Motion Shoulder Left Active Shoulder ROM WFL Yes Right Active Flexion 40 Abduction 45 Right Passive Testing Position Supine Flexion 120 Abduction 82 External Rotation at 45 degrees 25 Abduction Internal Rotation 45 PT-OP-M Strength Start: 03/29/19 07:34 Freq: Status: Active Protocol: Document 03/29/19 09:00 AMB (Rec: 03/29/19 16:44 AMB [email or web address]) Shoulder Strength Shoulder Manual Muscle Testing Right Flexion 3- Fair- Extension 3 Fair Abduction (C5) 3- Fair- External Rotation 2+ Poor+ Internal Rotation 2+ Poor+ PT-OP-Q Treatments Start: 03/29/19 07:34 Freq: Status: Active Protocol: Document 04/05/19 09:45 AMB (Rec: 04/05/19 13:32 AMB [email or web address]) Therapeutic Exercises Supine Exercises 2 Supine Exercise Name isometrics Equipment Used wall Reps/Minutes x3 ea, 10 hold Comments flex, ext, abd (at neutral) 1 Supine Exercise Name AAROM with wand Reps/Minutes x3 ea Comments flex, abd, ER Sitting Exercises overhead acosta Sitting Exercise Name AAROM Side bilateral Comments flex, abd, scaption Standing Exercises shd ext Equipment Used PVC pipe Reps/Minutes 8 x 2 Comments cues on neutral spine scap retraction Equipment Used lvl 2 band Reps/Minutes 10 x 2 Comments 3 sec hold PT-OP-T Assessment and Plan Start: 03/29/19 07:34 Freq: Status: Active Protocol: Document 04/05/19 09:45 AMB (Rec: 04/05/19 13:32 AMB [email or web address]) Physical Therapy Assessment Assessment Summary Assessment Rosa is noticing some pain in her arm down in her biceps at times when she is just sitting and letting the arm hang, otherwise pain is not bad. Physical Therapy Plan Next Visit Focus/Plan Next Note Type Treatment Note Next Visit Plan review and Progress HEP, isometrics, AAROM as tolerated UBE as elaine
--- NOTE | 2019-04-09 12:00 | PT.OTN ---
Current Diagnoses Impingement syndrome of right shoulder (04/09/19) Bursitis of right shoulder (04/09/19) Physical Therapy Treatment Note PT-OP-A Visit Information Start: 03/29/19 07:34 Freq: Status: Active Protocol: Document 04/09/19 10:30 AMB (Rec: 04/09/19 16:12 AMB [email or web address]) Out-Patient Physical Therapy Visit Information Visit Information Visit Type Treatment Note Visit Start Time 10:30 Visit Stop Time 11:15 Total Visit Minutes 45 Visit Number 4 Number of GAMING WORKER Visits 0 PT-OP-B Current Condition Start: 03/29/19 07:34 Freq: Status: Active Protocol: Document 03/29/19 09:00 AMB (Rec: 03/29/19 16:44 AMB [email or web address]) Current Condition History of Current Condition Onset Date 02/13/19 Current Complaints s/p right rotator cuff repair History of Current Condition Rosa had a right rotator cuff repair on 02/13/19. She wore a sling for 6 weeks, and is coming to therapy to learn ways to strengthen her shoulder. She will be going on a 1 month long boating trip in a few weeks, so she is looking for things she can do herself. She knows she is not allowed to lift anything at this time. Her prescription says begin passive and active range of motion. Treatment Goals Patient/Caregiver Goals lift arm/ lift luggage without pain Current Functional Impairments (Reported) Functional Limitations- ADL's difficulty brushing her hair, using the arm to cook, clean, dress. Personal Factors Other Personal Factors That May Effect Going on a boating trip, so Therapy/Recovery will not have consistent PT. PT-OP-C Subjective Start: 03/29/19 07:34 Freq: Status: Active Protocol: Document 04/09/19 10:30 AMB (Rec: 04/09/19 16:12 AMB [email or web address]) OP-PT Subjective Patient Comments Patient Comments Pt will be on the boat for the next month. Overall shoulder feeling good, but still needs to strengthen as can't lift it above shoulder height. PT-OP-K Range of Motion Start: 03/29/19 07:34 Freq: Status: Active Protocol: Document 03/29/19 09:00 AMB (Rec: 03/29/19 16:44 AMB [email or web address]) Shoulder Goniometric Range of Motion Shoulder Left Active Shoulder ROM WFL Yes Right Active Flexion 40 Abduction 45 Right Passive Testing Position Supine Flexion 120 Abduction 82 External Rotation at 45 degrees 25 Abduction Internal Rotation 45 PT-OP-M Strength Start: 03/29/19 07:34 Freq: Status: Active Protocol: Document 03/29/19 09:00 AMB (Rec: 03/29/19 16:44 AMB [email or web address]) Shoulder Strength Shoulder Manual Muscle Testing Right Flexion 3- Fair- Extension 3 Fair Abduction (C5) 3- Fair- External Rotation 2+ Poor+ Internal Rotation 2+ Poor+ PT-OP-Q Treatments Start: 03/29/19 07:34 Freq: Status: Active Protocol: Document 04/09/19 10:30 AMB (Rec: 04/12/19 12:56 AMB [email or web address]) Therapeutic Exercises Sidelying Exercises 2 Sidelying Exercise Name ER Comments partial ROM 1 Sidelying Exercise Name abduction Comments to 45 only Sitting Exercises overhead acosta Sitting Exercise Name AAROM Side bilateral Comments flex, abd, scaption Standing Exercises wall climb Side bilateral Reps/Minutes 8 x 2 scap retraction Equipment Used lvl 2 band Reps/Minutes 10 x 2 Comments 3 sec hold 5 Standing Exercise Name IR Resistance #2 band Reps/Minutes 10x2 Manual Therapy Treatment Soft Tissue Mobilization 1 Body Location PROM Comments all planes, instruction in how to have help PT-OP-T Assessment and Plan Start: 03/29/19 07:34 Freq: Status: Active Protocol: Document 04/09/19 10:30 AMB (Rec: 04/09/19 16:12 AMB [email or web address]) Physical Therapy Assessment Assessment Summary Assessment Pt is going to be on hold for the next month while on her boat, she is hoping to be able to improve without PT, but was given instruction in how to progress independently, but will not be discharged in case questions/concerns come up. Physical Therapy Plan Next Visit Focus/Plan Next Note Type Progress Note
--- NOTE | 2019-05-03 18:37 | PT.OTN ---
Current Diagnoses Impingement syndrome of right shoulder (05/03/19) Bursitis of right shoulder (05/03/19) Physical Therapy Treatment Note PT-OP-A Visit Information Start: 03/29/19 07:34 Freq: Status: Active Protocol: Document 05/03/19 14:35 HH (Rec: 05/03/19 18:36 HH [email or web address]) Out-Patient Physical Therapy Visit Information Visit Information Visit Type Progress Note Visit Start Time 14:35 Visit Stop Time 15:17 Total Visit Minutes 42 Visit Number 5 Number of GROMMET MAN Visits 0 PT-OP-B Current Condition Start: 03/29/19 07:34 Freq: Status: Active Protocol: Document 03/29/19 09:00 AMB (Rec: 03/29/19 16:44 AMB [email or web address]) Current Condition History of Current Condition Onset Date 02/13/19 Current Complaints s/p right rotator cuff repair History of Current Condition Rosa had a right rotator cuff repair on 02/13/19. She wore a sling for 6 weeks, and is coming to therapy to learn ways to strengthen her shoulder. She will be going on a 1 month long boating trip in a few weeks, so she is looking for things she can do herself. She knows she is not allowed to lift anything at this time. Her prescription says begin passive and active range of motion. Treatment Goals Patient/Caregiver Goals lift arm/ lift luggage without pain Current Functional Impairments (Reported) Functional Limitations- ADL's difficulty brushing her hair, using the arm to cook, clean, dress. Personal Factors Other Personal Factors That May Effect Going on a boating trip, so Therapy/Recovery will not have consistent PT. PT-OP-C Subjective Start: 03/29/19 07:34 Freq: Status: Active Protocol: Document 05/03/19 14:35 HH (Rec: 05/03/19 18:36 HH [email or web address]) OP-PT Subjective Patient Comments Patient Comments Overall shoulder feeling good , but still have difficulty combing her hair and reach behind her back. Patient Reported Progress Improving PT-OP-K Range of Motion Start: 03/29/19 07:34 Freq: Status: Active Protocol: Document 03/29/19 09:00 AMB (Rec: 03/29/19 16:44 AMB [email or web address]) Shoulder Goniometric Range of Motion Shoulder Left Active Shoulder ROM WFL Yes Right Active Flexion 40 Abduction 45 Right Passive Testing Position Supine Flexion 120 Abduction 82 External Rotation at 45 degrees 25 Abduction Internal Rotation 45 PT-OP-M Strength Start: 03/29/19 07:34 Freq: Status: Active Protocol: Document 03/29/19 09:00 AMB (Rec: 03/29/19 16:44 AMB [email or web address]) Shoulder Strength Shoulder Manual Muscle Testing Right Flexion 3- Fair- Extension 3 Fair Abduction (C5) 3- Fair- External Rotation 2+ Poor+ Internal Rotation 2+ Poor+ PT-OP-Q Treatments Start: 03/29/19 07:34 Freq: Status: Active Protocol: Document 05/03/19 14:35 HH (Rec: 05/03/19 18:36 HH [email or web address]) Therapeutic Exercises Sidelying Exercises sleeper stretch Side right Comments to end range of er/ IR 2 Sidelying Exercise Name ER Comments partial ROM 1 Sidelying Exercise Name abduction Comments to 45 only Sitting Exercises overhead acosta Sitting Exercise Name AAROM to full ROM Side bilateral Reps/Minutes 6 mins Comments flex, abd, scaption Standing Exercises shd abd iso hold Standing Exercise Name wall climb and iso hold Side right Reps/Minutes hold x 3 secs and back to wall for support Comments cues on reducing upper trap activation wall climb shd abd Side right Reps/Minutes 8 x2 shd ER walk out Standing Exercise Name lateral walk out Side right Resistance level 1 Reps/Minutes 5 x 3 Comments elbow at 90 shd ext Equipment Used PVC pipe Reps/Minutes 8 x 2 Comments cues on neutral spine scap retraction Equipment Used lvl 3 band Reps/Minutes 10 x 2 Comments 3 sec hold Manual Therapy Treatment Soft Tissue Mobilization 1 Body Location PROM Comments all planes, primarily ER and IR PT-OP-T Assessment and Plan Start: 03/29/19 07:34 Freq: Status: Active Protocol: Document 05/03/19 14:35 HH (Rec: 05/03/19 18:36 HH [email or web address]) Physical Therapy Assessment Goals [facility] Goal (LTG) 05/03: AROM flexion = 120, abduction = 110 goal in progress Three Short Term Goal (STG) 05/03 (goal in progress) = cont to have slight pain while brushing her hair Two Short Term Goal (STG) 05/03 goal met= full ROM of flexion in pain free [facility] Goal (LTG) Unable to lift 20 lbs yet One Short Term Goal (STG) goal in progress: 05/03 abd= 3-/5 flexion= 3+/5 Progress Towards Goals Progress Towards Goals Progressing Toward Goals Assessment Summary Assessment Pt overall progressed fairly well with close to full AAROM, but ER=60, IR= 72. Added isometric abduction hold after wall climb and sleeper stretch. Pt will cont skilled therapy to improve her overall shd mobility and strength. Pt agreed to change PT frequency to once /week Physical Therapy Plan Frequency and Duration Frequency of Treatment 1x/Week Duration of Treatment 8 weeks Next Visit Focus/Plan Next Note Type Treatment Note Next Visit Plan review and Progress HEP, isometrics, AAROM as tolerated UBE as elaine strengthening in all planes as elaine
--- NOTE | 2019-07-09 07:48 | PT.OPDS ---
Current Diagnoses Impingement syndrome of right shoulder (05/03/19) Bursitis of right shoulder (05/03/19) Visit Care Team Role Provider Type Shauna Gomez DO Primary Care Provider Physician Specialty: Family Practice Address: [address] [place] [address], [address], [address] Email: [email or web address] Mirza Gaona MD Attending Provider Physician Specialty: Orthopedic Surgery Address: [address] [place] [address], [id number] Email: [email or web address] Visit Number Visit Number 5 Discharge Summary PT-OP-B Current Condition Start: 03/29/19 07:34 Freq: Status: Active Protocol: Document 03/29/19 09:00 AMB (Rec: 03/29/19 16:44 AMB [email or web address]) Current Condition History of Current Condition Onset Date 02/13/19 Current Complaints s/p right rotator cuff repair History of Current Condition Rosa had a right rotator cuff repair on 02/13/19. She wore a sling for 6 weeks, and is coming to therapy to learn ways to strengthen her shoulder. She will be going on a 1 month long boating trip in a few weeks, so she is looking for things she can do herself. She knows she is not allowed to lift anything at this time. Her prescription says begin passive and active range of motion. Treatment Goals Patient/Caregiver Goals lift arm/ lift luggage without pain Current Functional Impairments (Reported) Functional Limitations- ADL's difficulty brushing her hair, using the arm to cook, clean, dress. Personal Factors Other Personal Factors That May Effect Going on a boating trip, so Therapy/Recovery will not have consistent PT. PT-OP-C Subjective Start: 03/29/19 07:34 Freq: Status: Active Protocol: Document 05/03/19 14:35 HH (Rec: 05/03/19 18:36 HH [email or web address]) OP-PT Subjective Patient Comments Patient Comments Overall shoulder feeling good , but still have difficulty combing her hair and reach behind her back. Patient Reported Progress Improving PT-OP-K Range of Motion Start: 03/29/19 07:34 Freq: Status: Active Protocol: Document 03/29/19 09:00 AMB (Rec: 03/29/19 16:44 AMB [email or web address]) Shoulder Goniometric Range of Motion Shoulder Left Active Shoulder ROM WFL Yes Right Active Flexion 40 Abduction 45 Right Passive Testing Position Supine Flexion 120 Abduction 82 External Rotation at 45 degrees 25 Abduction Internal Rotation 45 PT-OP-M Strength Start: 03/29/19 07:34 Freq: Status: Active Protocol: Document 03/29/19 09:00 AMB (Rec: 03/29/19 16:44 AMB [email or web address]) Shoulder Strength Shoulder Manual Muscle Testing Right Flexion 3- Fair- Extension 3 Fair Abduction (C5) 3- Fair- External Rotation 2+ Poor+ Internal Rotation 2+ Poor+ PT-OP-T Assessment and Plan Start: 03/29/19 07:34 Freq: Status: Active Protocol: Document 07/09/19 07:44 AMB (Rec: 07/09/19 07:48 AMB [email or web address]) Physical Therapy Assessment Goals Four [employer] Goal (LTG) 05/03: AROM flexion = 120, abduction = 110 goal in progress Three Short Term Goal (STG) 05/03 (goal in progress) = cont to have slight pain while brushing her hair Two Short Term Goal (STG) 05/03 goal met= full ROM of flexion in pain free [employer] Goal (LTG) Unable to lift 20 lbs yet One Short Term Goal (STG) goal in progress: 05/03 abd= 3-/5 flexion= 3+/5 Assessment Summary Assessment Called pt and she feels that she is progressing enough at this point, so does not feel that she needs further formal PT at this time. At her last appointment she had close to normal AAROM, but AROM and strength were still limited. Physical Therapy Plan Discharge Physical Therapy Discharge Reasons Patient Request
== END 2019-05-03 15:30 ==
LOC: PHYS 14:30
PROVIDERS: PCP Family Medicine; Visit Provider Orthopaedic Surgery
DX: M75.51 Bursitis of right shoulder (principal); M75.41 Impingement syndrome of right shoulder
CPT/HCPCS: 97110; 97140; 97161

== ENCOUNTER → 2019-10-08 09:03 | Outpatient (CLI) | payer MEDICARE, OTHER, SELFPAY ==
[2019-10-08 10:09] LABS: Add Manual Diff / Slide Review NO; Basophils Absolute Auto 100 /uL (0-100); Basophils Percent Auto 1.4 % (0-2); Eosinophils Absolute Auto 200 /uL (0-450); Eosinophils Percent Auto 4.1 % (2-4); Hematocrit 40.8 % (36-46); Hemoglobin 13.9 g/dL (12.0-16.0); Lymphocytes Absolute Auto 1400 /uL (1100-4500); Lymphocytes Percent Auto 35.2 % (25-40); Mean Corpuscular Hemoglobin 30.2 PG (26-34); Mean Corpuscular Volume 88.8 fL (80-100); Monocytes Absolute Auto 400 /uL (0-900); Monocytes Percent Auto 10.5 % (3-14); Neutrophils Absolute Auto 2000 /uL (1500-7000); Neutrophils Percent Auto 48.8 % (50-75); Platelet Count 316 X10^3/uL (150-400); Red Cell Distribution Width 14.2 % (11.6-14.8); White Blood Cell Count 4.1 X10^3/uL (4.5-11.0)
[2019-10-08 10:24] LABS: Alanine Aminotransferase 20 IU/L (<35); Albumin 4.4 g/dL (3.5-5.0); Albumin Globulin Ratio 1.7 (1.0-2.8); Alkaline Phosphatase 54 U/L (38-126); Aspartate Aminotransferase 28 IU/L (14-36); BUN Creatinine Ratio 21.4 (6-22); Blood Urea Nitrogen 15 mg/dL (7-17); Calcium 9.3 mg/dL (8.4-10.2); Carbon Dioxide 25 mmol/L (22-32); Chloride 103 mmol/L (98-107); Cholesterol 180 mg/dL (140-199); Estimated Glomerular Filt Rate > 60.0 mL/min (>60); Globulin 2.6 g/dL (1.7-4.1); Glucose 102 mg/dL (80-110); HDL Cholesterol 52 mg/dL (40-60); HEMOLYSIS < 15 (0-50); LDL Cholesterol Calculated 111 mg/dL (<100); Potassium 4.2 mmol/L (3.4-5.1); Sodium 139 mmol/L (137-145); Triglycerides 87 mg/dL (35-150)
[2019-10-08 10:50] LABS: Thyroid Stimulating Hormone 0.72 uIU/mL (0.47-4.68)
[2019-10-08 11:08] LABS: Hep C Virus Ab w/Reflex Quant NEGATIVE s/c (NEGATIVE)
== END ==
PROVIDERS: PCP Student in an Organized Health Care Education/Training Program; Referring Provider Family Medicine; Visit Provider Family Medicine
DX: Z13.29 Encounter for screening for other suspected endocrine disorder (principal); Z11.59 Encounter for screening for other viral diseases; E78.5 Hyperlipidemia, unspecified
CPT/HCPCS: 80053; 80061; 84443; 85025; 86803

== ENCOUNTER → 2020-02-11 08:07 | Outpatient (CLI) | payer MEDICARE, OTHER, SELFPAY ==
[2020-02-11 09:13] LABS: HDL Cholesterol 71 mg/dL (40-60); Triglycerides 76 mg/dL (35-150)
[2020-02-11 09:37] LABS: Cholesterol 384 mg/dL (140-199); LDL Cholesterol Calculated 298 mg/dL (<100)
== END ==
PROVIDERS: PCP Student in an Organized Health Care Education/Training Program; Referring Provider Student in an Organized Health Care Education/Training Program; Visit Provider Student in an Organized Health Care Education/Training Program
DX: E78.5 Hyperlipidemia, unspecified (principal)
CPT/HCPCS: 36415; 80061

== ENCOUNTER → 2020-03-03 12:45 | Outpatient (CLI) | payer MEDICARE, OTHER, SELFPAY ==
[2020-03-04 16:12] LABS: Fecal Immunochemical Test Negative (Negative)
== END ==
PROVIDERS: PCP Student in an Organized Health Care Education/Training Program; Referring Provider Student in an Organized Health Care Education/Training Program; Visit Provider Student in an Organized Health Care Education/Training Program
DX: Z12.11 Encounter for screening for malignant neoplasm of colon (principal)
CPT/HCPCS: 82274

== ENCOUNTER → 2020-03-19 15:02 | Outpatient (CLI) | payer MEDICARE, OTHER, SELFPAY ==
[2020-03-21 01:44] LABS: COVID19 Sendout Not Detected (Not Detect)
== END ==
PROVIDERS: PCP Student in an Organized Health Care Education/Training Program; Visit Provider Physician Assistant
DX: Z01.812 Encounter for preprocedural laboratory examination (principal)
CPT/HCPCS: 87635

== ENCOUNTER → 2020-03-19 15:14 | Outpatient (CLI) | payer MEDICARE, OTHER, SELFPAY ==
--- NOTE | 2020-03-19 15:17 | DI.MG.S_ITS ---
BILATERAL DIGITAL SCREENING MAMMOGRAM 3D/2D WITH CAD POST LUMPECTOMY: 03/19/2020 CLINICAL: Routine screening. Breast cancer. Comparison is made to exams dated: 12/14/2016 mammogram, 06/20/2014 mammogram, and 02/20/2013 mammogram - [facility]. The tissue of both breasts is heterogeneously dense. This may lower the sensitivity of mammography. Current study was also evaluated with a Computer Aided Detection (CAD) system. There are benign post operative findings in the left breast. No significant masses, calcifications, or other findings are seen in either breast. There has been no significant interval change. IMPRESSION: There is no mammographic evidence of malignancy. A 1 year screening mammogram is recommended. This exam was interpreted at Station ID: [id number]. NOTE: For mammograms, a report in lay terms will be sent to the patient. Approximately 15% of breast malignancies will not be visualized mammographically. In the management of a palpable breast mass, a negative mammogram must not discourage biopsy of a clinically suspicious lesion. Electronically Signed By: Krishna heaton/gonzales:03/19/2020 18:00:47 letter sent: Normal Exam ACR BI-RADS Category 2: Benign Finding(s) 3342F
== END ==
PROVIDERS: PCP Student in an Organized Health Care Education/Training Program; Referring Provider Student in an Organized Health Care Education/Training Program; Visit Provider Student in an Organized Health Care Education/Training Program
DX: Z12.31 Encounter for screening mammogram for malignant neoplasm of breast (principal); Z85.3 Personal history of malignant neoplasm of breast; Z13.820 Encounter for screening for osteoporosis; M85.851 Other specified disorders of bone density and structure, right thigh; Z78.0 Asymptomatic menopausal state
CPT/HCPCS: 77063; 77067; 77080

== ENCOUNTER → 2020-09-09 07:52 | Outpatient (CLI) | payer MEDICARE, OTHER, SELFPAY ==
[2020-09-09 09:04] LABS: Cholesterol 305 mg/dL (140-199); HDL Cholesterol 70 mg/dL (40-60); LDL Cholesterol Calculated 220 mg/dL (<100); Triglycerides 76 mg/dL (35-150)
== END ==
PROVIDERS: PCP Student in an Organized Health Care Education/Training Program; Referring Provider Student in an Organized Health Care Education/Training Program; Visit Provider Student in an Organized Health Care Education/Training Program
DX: E78.5 Hyperlipidemia, unspecified (principal)
CPT/HCPCS: 36415; 80061

== ENCOUNTER → 2020-12-19 10:03 | Outpatient (ROUT) | payer MEDICARE, OTHER, SELFPAY ==
[2020-12-19 10:31] LABS: COVID19 -Nasal RAPID Negative (Negative)
== END ==
PROVIDERS: PCP Student in an Organized Health Care Education/Training Program; Visit Provider Physician Assistant
DX: Z20.822 Contact with and (suspected) exposure to COVID-19 (principal)
CPT/HCPCS: 87635

== ENCOUNTER → 2021-11-09 09:46 | Outpatient (CLI) | payer MEDICARE, OTHER, SELFPAY ==
[2021-11-09 13:24] LABS: COVID19 -Nasal RAPID Negative (Negative)
== END ==
PROVIDERS: PCP Student in an Organized Health Care Education/Training Program; Visit Provider Family Medicine Sleep Medicine
DX: Z20.822 Contact with and (suspected) exposure to COVID-19 (principal)
CPT/HCPCS: 87635; C9803

== ENCOUNTER 2021-11-11 11:58 | Day surgery (SDC) | payer MEDICARE, OTHER, SELFPAY ==
--- NOTE | 2021-11-10 17:48 | PM.PREOP ---
Pre-operative Note COVID-19 COVID-19 status: Negative Criteria for continued procedure: Expected advancement of disease process, Possibility delay results in more complex future surgery or treatment, Increased loss of function, Delay expected to result in less-positive ultimate med/surg outcome and Non-surgical alternatives not available or appropriate per current SOC Interval Note History & Physical reviewed/Exam performed by Physician: Yes Changes to H&P: No
[2021-11-11] VITALS (8 sets, daily range): BP systolic 98–110; BP diastolic 62–71; PULSE 66–86; RESP 12–17; TEMP 36.1–36.5; O2SAT 95–98; BMI 25.7
--- NOTE | 2021-11-11 07:55 | PM.OP.1 ---
Operative Date/Time/Diagnoses Date of procedure: 11/11/21 Time of procedure: 13:15 Procedure & Clinicians Procedure: Date of service: 11/11/2021 Preoperative diagnoses: 1. 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 2. 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 3. Herniated inferior fat pads which she elects to add on is in a cosmetic procedure. 4. Sleep apnea 5. History of vertigo 6. Hypercholesterolemia Postoperative diagnoses: 1. Bilateral upper lid dermatochalasis 2. Bilateral lower lid ectropion with punctoplasty and left 3 snip procedure 3. Bilateral removal inferior herniated fat pads Procedure: Bilateral upper blepharoplasty, bilateral lower lid ectropion with right -puctoplasty and left 3 snip procedure of the puctum.Surgeon: Karely Call MD Complications: none Specimen: None Blood loss: Less than 3 mL Anesthesia: Local infiltration with monitored standby. Indications: Bilateral upper lids obstructing superior vision. Bilateral lower lid laxity causing corneal exposure and tendency for dry eye. She feels she has to lift her eyelids in order to see to drive because they are blocking her central upper vision. 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 She will require surgery of both her upper lids as well as ectropion repair to help reduce risk of exposure and dry eye. She also has closed puncta and they will be opendd at the same time. She elects to add on cosmetic lower fat pad removal at the time of this procedure to reduce her risk of repeated surgeries. External photographs taken and loss of vision to within 2 mm of marginal light reflex. Functional surgery. Preoperative approval obtained. Procedure: In the preoperative holding area the amount skin and subcutaneous tissue to be removed was marked with indelible ink. The contours were carefully checked for symmetry and planned procedure discussed with the patient. The patient was taken to the operating room. IV sedation was given. Proparacaine drops were placed in both eyes for comfort. Local infiltration of anesthetic 2.5 cc into each upper lid and the lower and lateral lid on each side. This consisted of 1% xylocaine with epinephrine, normal saline and 1 cc hyluronidase was placed. This was then supplemented with full strength 2% xylocaine with epinephrine, 0.5% bupivacaine, and 1 cc hyalurondase. The face was prepped in an open manner. Attention was placed to the right upper lid. Using the previous paige a number 15. Bard-Willy blade was used to incise a skin muscle flap. The flap was lifted and removed. Cautery was applied as needed. Contouring of the muscle belly was also performed. Exploration of the nasal and preoperneurotic fat pads were performed removal and contouring with hemostat and scissors as well as cautery were performed. The lid was then closed with running and interrupted 6 0 Vicryl sutures. Attention was then placed to the lateral canthus. A lateral canthotomy of 1 cm began at the lateral canthus and extended laterally. This was dissected to the periosteum and the periosteum exposed with retraction. The inferior canthal tendon was lysed. A horizontal lid flap was then created and the anterior and post anterior lamellar removed. A 1 mm shortening occurred. A 4-0 Mersilene suture double-armed was placed through the tarsal strip and then anchored into the periosteum at the level of the desired contour. Multiple throws were placed in the suture was buried. Excess skin was removed from the lower lid at this margin. The incision was then left open and a subciliary incision was placed under the eyelashes to expose the inferior fat pad. Dissection through the orbital septum occurred in the medial, lateral and temporal fat pads were isolated removed and cauterized. A small amount of skin was removed. A puctoplasty was performed with a punctal dilator. Attention was then placed to the lateral canthus where a canthoplasty was performed matching the upper to the lower lid. Interrupted 6 0 Vicryl suture was used to do this as well as to place subcutaneous sutures over the permanent periosteal anchor. The skin was then closed laterally with interrupted 6 0 sutures. A running suture was used to close the inferior lid. Extra local anesthetic was placed as needed. There was minimal blood loss and she tolerated that procedure well. Same procedures were repeated for the left upper lid and lower lid with the addition of a 3 snip procedure to open the closed punctum. The Betadine was removed. Maxitrol ointment was placed to suture line. She returned to recovery room in stable condition. Instructions for postoperative cold packs were reviewed. She has sleep apnea and will wear her breathing device tonight for sleep as well as keep her head elevated to 30 degrees. Karely Call MD. Same procedure as scheduled: Yes
[2021-11-11] MEDS: LACTATED RINGERS 1,000 ML 42 ML IV (12:50)
--- NOTE | 2021-11-11 13:43 | SUR.OPER ---
Supine on eye stretcher, head on extension cradle secured with tape. Arms tucked at sides with blanket. Pillow under knees.
[2021-11-11] MEDS: NEOMYCIN/POLY/DEX OPHTH OINT 1 APPLIC EYE-BOTH (15:18)
[2021-11-11] MEDS: LIDOCAINE 1% W/EPI 3 ML, SODIUM CHLORIDE 0.9% 2 ML, HYALURONIDASE 150 UNIT INJ (15:25)
[2021-11-11] MEDS: LIDOCAINE 2% INJ (15:34)
[2021-11-11] MEDS: BUPIVACAINE 0.5% INJ (15:34)
[2021-11-11] MEDS: HYALURONIDASE INJ (15:34)
[2021-11-11] MEDS: OXYCODONE IR 5 MG TABLET PO (17:54)
== END 2021-11-11 18:15 | disposition home or self-care (01) ==
LOC: OR 12:00
PROVIDERS: PCP Student in an Organized Health Care Education/Training Program; Referring Provider Ophthalmology; Visit Provider Ophthalmology
PROC: (CPT 67917; principal; 2021-11-11 13:15)
PROC: (CPT 67917; 2021-11-11 13:15)
DX: H02.834 Dermatochalasis of left upper eyelid (principal); H02.831 Dermatochalasis of right upper eyelid; H02.832 Dermatochalasis of right lower eyelid; H02.102 Unspecified ectropion of right lower eyelid; H02.105 Unspecified ectropion of left lower eyelid; G47.33 Obstructive sleep apnea (adult) (pediatric); Z41.1 Encounter for cosmetic surgery
CPT/HCPCS: 67917; 15820; 15823; J2704; J3010; J3470

== ENCOUNTER 2021-11-11 12:00 | Day surgery (SDC) | payer SELFPAY | END 2021-11-11 12:05 | disposition home or self-care (01) | LOC: OR 12:00 | PROVIDERS: PCP Student in an Organized Health Care Education/Training Program; Referring Provider Ophthalmology; Visit Provider Ophthalmology | DX: Z53.09 Procedure and treatment not carried out because of other contraindication (principal) ==

== ENCOUNTER → 2021-12-03 07:51 | Outpatient (CLI) | payer MEDICARE, OTHER, SELFPAY ==
--- NOTE | 2021-12-03 | DI.MG.S_ITS ---
BILATERAL DIGITAL SCREENING MAMMOGRAM 3D/2D WITH CAD POST LUMPECTOMY: 12/03/2021 CLINICAL: Routine screening. Personal history of left breast cancer. Comparison is made to exams dated: 03/19/2020 mammogram, 12/14/2016 mammogram, and 06/20/2014 mammogram - [facility]. The tissue of both breasts is heterogeneously dense. This may lower the sensitivity of mammography. Current study was also evaluated with a Computer Aided Detection (CAD) system. There are benign post operative findings in the left breast. No significant masses, calcifications, or other findings are seen in either breast. There has been no significant interval change. IMPRESSION: BENIGN There is no mammographic evidence of malignancy. A 1 year screening mammogram is recommended. This exam was interpreted at Station ID: [id number]. NOTE: For mammograms, a report in lay terms will be sent to the patient. Approximately 15% of breast malignancies will not be visualized mammographically. In the management of a palpable breast mass, a negative mammogram must not discourage biopsy of a clinically suspicious lesion. Electronically Signed By: Bryan Pitt M.D., jr/gonzales:12/03/2021 08:31:37 letter sent: Normal Exam ACR BI-RADS Category 2: Benign Finding(s) 3342F
== END ==
PROVIDERS: PCP Student in an Organized Health Care Education/Training Program; Referring Provider Student in an Organized Health Care Education/Training Program; Visit Provider Student in an Organized Health Care Education/Training Program
DX: Z12.31 Encounter for screening mammogram for malignant neoplasm of breast (principal); Z85.3 Personal history of malignant neoplasm of breast
CPT/HCPCS: 77063; 77067

== ENCOUNTER → 2021-12-16 11:12 | Outpatient (CLI) | payer MEDICARE, OTHER, SELFPAY ==
--- NOTE | 2021-12-16 | DI.RAD.S_ITS ---
PROCEDURE: XR DEXA AXIAL SKELETON INDICATIONS: Unspecified menopausal and perimenopausal disorder COMPARISON: None. FINDINGS: This blank DEXA report has been sent in error by the PACS system. The correct and complete report will be forthcoming in 1-2 days. Thank you for your patience and understanding. Dictated by: Alyce Griggs MD, PhD on 12/16/2021 at 15:25 Approved by: Alyce Griggs MD, PhD on 12/16/2021 at 15:25
== END ==
PROVIDERS: PCP Student in an Organized Health Care Education/Training Program; Referring Provider Student in an Organized Health Care Education/Training Program; Visit Provider Student in an Organized Health Care Education/Training Program
DX: Z13.820 Encounter for screening for osteoporosis (principal); Z78.0 Asymptomatic menopausal state
CPT/HCPCS: 77080

== ENCOUNTER → 2022-02-16 08:55 | Outpatient (CLI) | payer MEDICARE, OTHER, SELFPAY ==
[2022-02-16 12:10] LABS: COVID19 -Nasal RAPID Negative (Negative)
== END ==
PROVIDERS: PCP Student in an Organized Health Care Education/Training Program; Visit Provider Surgery
DX: Z20.822 Contact with and (suspected) exposure to COVID-19 (principal); Z01.812 Encounter for preprocedural laboratory examination
CPT/HCPCS: 87635; C9803

== ENCOUNTER 2022-02-17 12:00 | Day surgery (SDC) | payer MEDICARE, OTHER, SELFPAY ==
--- NOTE | 2022-02-17 | PATH_ITS ---
[facility] Accession Number: [id number] No. of containers..02 Tissue . 01 Material submitted: . PART A: rectum - RECTAL COLON POLYP PART B: sigmoid colon - SIGMOID COLON POLYP . 01 Diagnosis: A. Rectum, Polyp, Biopsy: Hyperplastic polyp. . B. Sigmoid Colon, Polyp, Biopsy: Hyperplastic polyp. MRV 02/19/2022 1040 Local . 01 Electronically signed: . Brittany Parada MD, Pathologist NPI- [id number] . 01 Gross description: . Part A: RECTAL COLON POLYP: Received in formalin is 1 fragment(s) of hanson, soft tissue measuring 0.6 x 0.2 x 0.2 cm submitted entirely in 1 cassette(s) Part B: SIGMOID COLON POLYP: Received in formalin is 1 fragment(s) of hnason, soft tissue measuring 0.4 x 0.4 x 0.3 cm submitted entirely in 1 cassette(s) /CPE 02/18/2022 0916 Local . 01 Pathologist provided ICD-10: K63.5 . 01 CPT . 841971, [id number] Specimen Comment: A courtesy copy of this report has been sent to [phone] Performed at: 01 [facility] [address] [place] [address] Suite [facility], [place], [place] [id number] MD Mirza Ann MD Phone: [phone]
[2022-02-17] MEDS: LACTATED RINGERS 1,000 ML 84 ML IV (12:12)
[2022-02-17 12:19] VITALS: BP 114/73; PULSE 88; RESP 18; TEMP 36.3; O2SAT 97; BMI 26.1
--- NOTE | 2022-02-17 13:01 | PM.HP.1 ---
History of Present Illness History of Present Illness Chief complaint: COLONOSCOPY Patient History Medical History (Updated 11/11/21 @ 12:18 by Krish Nix RN) Anxiety Breast cancer Depression Hyperlipidemia Nocturnal hypoxemia Obstructive sleep apnea of adult (~2017) Primary insomnia (~2012) Snoring (~2012) Ulnar nerve compression Surgical History History of right shoulder replacement (~2017) Family & Social History Social History: household members spouse Tobacco & Substance use: Smoking Status Never smoker alcohol intake former Substance Use Type does not use Meds Home Medications and Allergies Home Medications Medication Instructions Recorded Confirmed Type Resmed Airsense 10 CPAP #1 ea 02/07/19 09/23/21 History citalopram 10 mg tablet 10 mg PO DAILY #30 tabs 05/16/20 02/17/22 Rx alprazolam 0.5 mg tablet 0.5 mg PO DIRECTED PRN Anxiety 11/11/21 02/17/22 History Allergies Allergy/AdvReac Type Severity Reaction Status Date / Time No Known Drug Allergies Allergy Verified 02/17/22 12:26 Review of Systems Review of Systems Narrative: Negative Exam Vital Signs (past 8 hours): - 02/17/22 12:19 Temperature 97.4 F L Pulse Rate 88 Respiratory Rate 18 Blood Pressure 114/73 Pulse Oximetry 97 Oxygen Delivery Method Room Air Oxygen Delivery Method Room Air Narrative Exam Narrative: Awake alert and oriented x3, pupils equal round reactive to light, oropharynx clear, heart regular rate and rhythm, lungs clear to auscultation bilaterally, abdomen nontender and nondistended, extremities without edema, no gross neurologic deficits noted Assessment & Plan Assessment & Plan narrative: Colon cancer screening for colonoscopy today Time Spent With Patient Critical Care time: I spent a total of [] minutes of critical care time on this patient's care today; this time is exclusive of procedural time.
--- NOTE | 2022-02-17 13:21 | PM.OP.COLON ---
Operative Date/Time/Diagnoses Date of procedure: 02/17/22 Procedure & Clinicians Study performed: Colonoscopy with cold biopsy and snare polypectomy Indications: Colon cancer screening. Last colonoscopy 10-12 years ago. Procedure Notes Procedure in detail: Prior to the procedure, history and physical was performed, and patient medications and allergies were reviewed. Preprocedure nursing history and assessment was reviewed. Patient identification and proposed procedure were verified by the physician and nurse in the procedure room. The physical status of the patient was reassessed after the procedure. After informed consent was obtained including risks, benefits, and alternatives, the scope was passed under direct vision. Throughout the procedure, the patient's blood pressure, pulse, and oxygen saturations were monitored continuously. The colonoscope was introduced through the anus and advanced to the cecum as identified by the appendiceal orifice and ileocecal valve. The patient tolerated the procedure well. Bowel prep was deemed adequate to detect polyps greater than 5 mm. Perianal and digital rectal examinations were unremarkable. Retroflexion in the rectum revealed grade 1 internal hemorrhoids A 5 mm sessile polyp was removed from the rectum using a cold snare and retrieved A 2 mm sessile polyp was removed from the sigmoid colon with a Jumbo forceps and retrieved Complications: other (EBL minimal. No complications) Impression: Internal hemorrhoids 2 mm polyp removed from the sigmoid colon 5 mm polyp removed from the rectum Post-procedure Plan for aftercare: Follow-up pathology results Repeat colonoscopy at a date to be determined based on pathology results Resume home medications Resume previous diet Patient has a contact number available for emergencies. The signs and symptoms of potential delayed complications were discussed with the patient. Return to normal activities tomorrow. Written discharge instructions were provided to the patient. Discharge home with escort
[2022-02-17 13:24] VITALS: BP 87/55; PULSE 66; RESP 17; TEMP 36.7; O2SAT 96
[2022-02-17 13:27] VITALS: BP 92/54; PULSE 58; RESP 10; O2SAT 98
[2022-02-17 13:33] VITALS: BP 90/66; PULSE 67; RESP 14; O2SAT 98
[2022-02-17 13:43] VITALS: BP 98/57; PULSE 62; RESP 16; TEMP 36.2; O2SAT 98
== END 2022-02-17 13:50 | disposition home or self-care (01) ==
PROVIDERS: PCP Student in an Organized Health Care Education/Training Program; Referring Provider Internal Medicine; Visit Provider Internal Medicine
PROC: 0DJD8ZZ Inspection of Lower Intestinal Tract, Via Natural or Artificial Opening Endoscopic (ICD-10-PCS; CPT 45378; principal; 2022-02-17 13:00)
DX: Z12.11 Encounter for screening for malignant neoplasm of colon (principal); K63.5 Polyp of colon; K62.1 Rectal polyp; K64.0 First degree hemorrhoids; G47.33 Obstructive sleep apnea (adult) (pediatric); E78.5 Hyperlipidemia, unspecified; F41.9 Anxiety disorder, unspecified; F32.A Depression, unspecified; Z85.3 Personal history of malignant neoplasm of breast
CPT/HCPCS: 45385; 45380; J2704

== ENCOUNTER → 2023-09-20 06:32 | Outpatient (CLI) | payer MEDICARE, OTHER, SELFPAY ==
--- NOTE | 2023-09-20 06:34 | DI.US.S_ITS ---
PROCEDURE: US CAROTID DOPPLER BI INDICATIONS: ELEVATED CHOLESTROL TECHNIQUE: Color and pulse Doppler interrogation was performed of both carotid systems, with image documentation and velocity measurements. COMPARISON: None. FINDINGS: Stenosis calculations are based on SRU (Society of Radiologists in Ultrasound) criteria. The flow velocities and the arterial waveforms are normal within both carotid arterial systems. The estimated degree of internal carotid artery stenosis is less than 50%. Antegrade flow is confirmed within both vertebral arteries. Note is made of a right-sided thyroid cyst and 3 left-sided thyroid nodules, with the largest measuring up to 1.4 cm. IMPRESSION: No hemodynamically significant stenosis is seen. Left-sided thyroid nodules are incidentally noted, measuring up to 1.4 cm. If clinically appropriate, please consider a follow-up thyroid ultrasound. Dictated by: Eleuterio Holm M.D. on 09/20/2023 at 13:08 Approved by: Eleuteroi Holm M.D. on 09/20/2023 at 13:09
== END ==
LOC: US 06:33
PROVIDERS: PCP Student in an Organized Health Care Education/Training Program; Referring Provider Student in an Organized Health Care Education/Training Program; Visit Provider Student in an Organized Health Care Education/Training Program
DX: E78.5 Hyperlipidemia, unspecified (principal); E04.2 Nontoxic multinodular goiter
CPT/HCPCS: 93880

== ENCOUNTER → 2023-09-28 11:14 | Outpatient (CLI) | payer MEDICARE, OTHER, SELFPAY ==
--- NOTE | 2023-09-28 | DI.US.S_ITS ---
PROCEDURE: US THYROID INDICATIONS: Nontoxic multinodular goiter TECHNIQUE: Real-time scanning was performed of the thyroid gland, with image documentation. COMPARISON: None. FINDINGS: Right: Thyroid lobe measures 4.2 x 1.6 x 1.5 cm, and is homogeneous in echotexture. Left: Thyroid lobe measures 0.4 x 1.5 x 1.2 cm, and is homogenous in echotexture. Isthmus: 0.2 cm thick. Nodule number: 1 Location: Right inferior lateral Size: 0.7 x 0.5 x 0.6 cm. Composition: Spongiform Echogenicity: Hypoechoic Shape: wider than tall. Margins: Smooth Echogenic foci: Non Total points: 2 ACR TI-RADS category: 2 Nodule number: 2 Location: Left superior Size: 0.9 x 0.8 x 0.9 cm. Composition: Spongiform Echogenicity: Hypoechoic Shape: wider than tall. Margins: Smooth Echogenic foci: Punctate Total points: 5 ACR TI-RADS category: 4 Nodule number: 3 Location: Left mid Size: 1.6 x 1.1 x 0.7 cm. Composition: Predominantly cystic Echogenicity: Hypoechoic Shape: wider than tall. Margins: Smooth Echogenic foci: Punctate Total points: 5 ACR TI-RADS category: 4 Nodule number: 4 Location: Left inferior Size: 0.9 x 0.9 x 0.6 cm. Composition: Spongiform Echogenicity: Hypoechoic Shape: wider than tall. Margins: Smooth Echogenic foci: Punctate Total points: 5 ACR TI-RADS category: 4 IMPRESSION: Left-sided category 4 nodules. Nodule 3 meets best practice criteria for FNA ACR TI-RADS definitions and recommendations: TI-RADS 1 (benign): 0 points. FNA not needed. TI-RADS 2 (not suspicious): 2 points. FNA not needed. TI-RADS 3 (mildly suspicious): 3 points. * FNA if 2.5 cm or larger, follow up if 1.5 cm or larger (at 1, 3, and 5 years). TI-RADS 4 (moderately suspicious): 4-6 points. * FNA if 1.5 cm or larger, follow up if 1 cm or larger (at 1, 2, 3, and 5 years). TI-RADS 5 (highly suspicious): 7 points or more. * FNA if 1 cm or larger, follow up if 0.5 cm or larger (every year for 5 years). Normal examination. Dictated by: Bryan Haji M.D. on 09/28/2023 at 19:30 Approved by: Bryan Haji M.D. on 09/28/2023 at 19:34
== END ==
PROVIDERS: PCP Student in an Organized Health Care Education/Training Program; Referring Provider Student in an Organized Health Care Education/Training Program; Visit Provider Student in an Organized Health Care Education/Training Program
DX: E04.2 Nontoxic multinodular goiter (principal)
CPT/HCPCS: 76536

== ENCOUNTER 2024-05-05 03:24 | Emergency (ER) | payer MEDICARE, OTHER, SELFPAY ==
[2024-05-05] VITALS (8 sets, daily range): BP systolic 105–149; BP diastolic 56–77; PULSE 58–78; RESP 12–25; TEMP 36.3–36.6; O2SAT 94–99; BMI 27.4
--- NOTE | 2024-05-05 03:38 | DI.RAD.S_ITS ---
PROCEDURE: XR CHEST 1V INDICATIONS: chest pain TECHNIQUE: One view of the chest was acquired. COMPARISON: None. FINDINGS: Surgical changes and devices: None. Lungs and pleura: Lungs are clear. No pleural effusions or pneumothorax. Mediastinum: Mediastinal contours appear normal. Heart size is normal. Bones and chest wall: No suspicious bony lesions. Overlying soft tissues appear unremarkable. IMPRESSION: No acute cardiopulmonary abnormality is seen. Dictated by: Venecia Mercer M.D. on 05/05/2024 at 8:04 Approved by: Venecia Mercer M.D. on 05/05/2024 at 8:05
--- NOTE | 2024-05-05 03:44 | EKG_ITS ---
[place] [address] [place] [id number] Test Date: 2024-05-05 Pat Name: Rosa Mora Department: [facility] Room: Gender: Female System Software Programmer: BERTIN : 1955 Requested By: Order Number: [id number] Reading MD: Ben Ware MD Measurements Intervals [place] Rate: 63 P: 10 [place]: 154 QRS: -12 QRSD: 70 T: 2 QT: 400 QTc: 409 Interpretive Statements Normal sinus rhythm Electronically Signed On 05-05-2024 4:08:18 PDT by Ben Ware MD
[2024-05-05 03:45] LABS: Add Manual Diff / Slide Review NO; Basophils Absolute Auto 100 /uL (0-100); Eosinophils Absolute Auto 300 /uL (0-450); Eosinophils Percent Auto 5.9 % (2-4); Hematocrit 34.4 % (36-46); Hemoglobin 11.4 g/dL (12.0-16.0); Lymphocytes Absolute Auto 2000 /uL (1100-4500); Lymphocytes Percent Auto 39.4 % (25-40); Mean Corpuscular HGB Conc 33.3 % (30-36); Mean Corpuscular Hemoglobin 28.9 PG (26-34); Mean Corpuscular Volume 86.9 fL (80-100); Monocytes Absolute Auto 600 /uL (0-900); Monocytes Percent Auto 11.6 % (3-14); Neutrophils Absolute Auto 2100 /uL (1500-7000); Neutrophils Percent Auto 41.1 % (50-75); Platelet Count 364 X10^3/uL (150-400); Red Blood Cell Count 3.96 X10^6/uL (4.0-5.2); Red Cell Distribution Width 14.8 % (11.6-14.8); White Blood Cell Count 5.2 X10^3/uL (4.5-11.0)
[2024-05-05 03:53] LABS: Alanine Aminotransferase 27 IU/L (<35); Albumin 4.2 g/dL (3.5-5.0); Albumin Globulin Ratio 1.6 (1.0-2.8); Alkaline Phosphatase 54 U/L (38-126); Aspartate Aminotransferase 33 IU/L (14-36); BUN Creatinine Ratio 32.8 (6-22); Bilirubin Total 0.7 mg/dL (0.2-1.3); Blood Urea Nitrogen 21 mg/dL (7-17); Calcium 10.4 mg/dL (8.4-10.2); Carbon Dioxide 25 mmol/L (22-32); Chloride 106 mmol/L (98-107); Creatine Kinase 168 U/L (30-135); Estimated Glomerular Filt Rate > 60 mL/min (>60); Globulin 2.6 g/dL (1.7-4.1); Glucose 117 mg/dL (80-110); HEMOLYSIS < 15 (0-50); Lipase 168 U/L (23-300); Potassium 3.9 mmol/L (3.4-5.1); Sodium 136 mmol/L (137-145); Total Protein 6.8 g/dL (6.3-8.2)
[2024-05-05 04:05] LABS: Troponin I < 0.012 ng/mL (0.01-0.034)
--- NOTE | 2024-05-05 04:15 | ED.CHESTPAIN ---
HPI - Chest Pain General Chief Complaint: Chest Pain Stated Complaint: bad heartburn Time Seen by Provider: 05/05/24 03:41 Source: patient Mode of arrival: Ambulatory Limitations: no limitations History of Present Illness HPI narrative: Patient is a healthy 69-year-old female presenting today with chest burning. She reports that she did not eat as well as she should have earlier today tonight she describes dull aching pain in the center of her chest radiating to the right side and to her right jaw. Seems to be pretty constant. No shortness of breath. However she is nauseous and actually just threw up in the ED. She has no abdominal pain or right upper quadrant pain. She has no known history of coronary artery disease. No family history of coronary artery disease. Related Data Home Medications Medication Instructions Recorded Confirmed alprazolam 0.5 mg tablet 0.5 mg PO DIRECTED PRN Anxiety 11/11/21 02/17/22 Resmed Airsense 10 CPAP #1 ea 03/25/22 Previous Rx's Medication Instructions Recorded citalopram 10 mg tablet 10 mg PO DAILY #30 tabs 05/16/20 Allergies Allergy/AdvReac Type Severity Reaction Status Date / Time No Known Drug Allergies Allergy Verified 02/17/22 12:26 Patient History Medical History Anxiety Breast cancer Depression Hyperlipidemia Nocturnal hypoxemia Obstructive sleep apnea of adult (~2017) Primary insomnia (~2012) Snoring (~2012) Ulnar nerve compression Surgical History History of right shoulder replacement (~2017) Social History (Updated 08/10/18 @ 10:05 by MEDARDO Garcia) household members: spouse Smoking Status: Never smoker alcohol intake: former substance use type: does not use additional social history: Successfully went through alcohol cessation program at [facility] Smoking Status: Never smoker Substance Use Type: does not use Exam Initial Vital Signs Initial Vital Signs: Vital Signs Pulse Rate 70 05/05/24 03:28 Blood Pressure 142/76 H 05/05/24 03:28 Pulse Oximetry 98 05/05/24 03:28 GENERAL: Alert actively vomiting 69-year-old female HEENT: Head atraumatic,EOMI, pupils reactive, face symmetric, [moist] mucous membranes CARDIOVASCULAR: Regular rate and rhythm without murmurs, rubs or gallops. RESPIRATORY: Breath sounds equal bilaterally, no wheezes rales or rhonchi. ABDOMEN: Soft, nontender. Normoactive bowel sounds all 4 quadrants. No guarding or rebound. EXTREMITIES: Normal range of motion, no clubbing or edema. Neurovascularly intact NEUROLOGICAL: Alert and oriented x4.Normal gait and speech. Cranial nerves II through XII grossly intact. SKIN: Warm, dry, no laceration, no petechiae, no rashes or lesions. Scores HEART Score Heart Score history: Moderately Suspicious Heart Score EKG: Normal Heart Score Age: > or = 65 years old Heart Score risk factors: 1-2 risk factors Heart Score troponin: < or = to normal limit Heart Score Total: 4 Course Orders Ordered: ED Orders 05/05/24 03:35 Complete Blood Count AUTO DIFF Stat Comprehensive Metabolic Panel Stat Lipase Stat Troponin & CK Cardiac Panel Stat 05/05/24 03:38 XR chest 1V Stat EKG-12 Lead Stat 05/05/24 04:49 EKG-12 Lead Stat 05/05/24 05:40 Trop I [Troponin I] Stat Discontinued Medications Aspirin (Aspirin 81 Mg Chew Tab) 324 mg PO NOW ONE Stop: 05/05/24 03:38 Last Admin: 05/05/24 04:42 Dose: Not Given Documented By: Aspirin (Aspirin Ec 325 Mg Tablet) 325 mg PO NOW ONE Stop: 05/05/24 04:22 Last Admin: 05/05/24 04:31 Dose: 325 mg Documented By: Sodium Chloride (Normal Saline 0.9%) 1,000 mls @ 1,000 mls/hr IV BOLUS ONE Stop: 05/05/24 05:20 Last Infusion: 05/05/24 05:29 Dose: Infused Documented By: Admin: 05/05/24 04:29 Dose: 1,000 mls/hr Documented By: Ondansetron HCl (Ondansetron 4 Mg/2 Ml Inj) 4 mg IV NOW ONE Stop: 05/05/24 04:22 Last Admin: 05/05/24 04:31 Dose: 4 mg Documented By: Pantoprazole Sodium (Pantoprazole 40 Mg Vial) 40 mg IV NOW ONE Stop: 05/05/24 04:22 Last Admin: 05/05/24 04:31 Dose: 40 mg Documented By: AB Vital Signs Vital signs: Vital Signs - 8 hr 05/05/24 03:28 05/05/24 03:28 05/05/24 03:30 Temperature Pulse Rate 70 74 Respiratory Rate 24 Blood Pressure 142/76 H Pulse Oximetry 98 98 Oxygen Delivery Method 05/05/24 03:30 05/05/24 03:32 05/05/24 04:00 Temperature 97.4 F L Pulse Rate 78 59 L Respiratory Rate 20 18 Blood Pressure 137/77 142/76 H Pulse Oximetry 99 97 Oxygen Delivery Method Room Air Room Air 05/05/24 04:00 05/05/24 04:30 05/05/24 04:30 Temperature Pulse Rate 62 Respiratory Rate 12 Blood Pressure 149/73 H 131/74 Pulse Oximetry 95 Oxygen Delivery Method 05/05/24 05:00 05/05/24 05:00 05/05/24 05:30 Temperature Pulse Rate 59 L 60 Respiratory Rate 14 25 H Blood Pressure 122/69 Pulse Oximetry 94 94 Oxygen Delivery Method Room Air 05/05/24 05:30 Temperature Pulse Rate Respiratory Rate Blood Pressure 105/56 L Pulse Oximetry Oxygen Delivery Method MDM - Chest Pain Lab Data 05/05/24 03:35 05/05/24 03:35 Labs: Lab Results 05/05/24 05/05/24 Range/Units 03:35 05:40 WBC 5.2 (4.5-11.0) X10^3/uL RBC 3.96 L (4.0-5.2) X10^6/uL Hgb 11.4 L (12.0-16.0) g/dL Hct 34.4 L (36-46) % MCV 86.9 (80-100) fL MCH 28.9 (26-34) PG MCHC 33.3 (30-36) % RDW 14.8 (11.6-14.8) % Plt Count 364 (150-400) X10^3/uL Neut % (Auto) 41.1 L (50-75) % Lymph % (Auto) 39.4 (25-40) % [place] % (Auto) 11.6 (3-14) % Eos % (Auto) 5.9 H (2-4) % Baso % (Auto) 2.0 (0-2) % Neut # (Auto) 2100 (9940-3354) /uL Lymph # (Auto) 2000 (2266-8609) /uL [place] # (Auto) 600 (0-900) /uL Eos # (Auto) 300 (0-450) /uL Baso # (Auto) 100 (0-100) /uL Sodium 136 L (137-145) mmol/L Potassium 3.9 (3.4-5.1) mmol/L Chloride 106 (98-107) mmol/L Carbon Dioxide 25 (22-32) mmol/L BUN 21 H (7-17) mg/dL Creatinine 0.64 (0.52-1.04) mg/dL Estimated GFR > 60 (>60) mL/min BUN/Creatinine Ratio 32.8 H (6-22) Glucose 117 H (80-110) mg/dL Calcium 10.4 H (8.4-10.2) mg/dL Total Bilirubin 0.7 (0.2-1.3) mg/dL AST 33 (14-36) IU/L ALT 27 (<35) IU/L Alkaline Phosphatase 54 (38-126) U/L Total Creatine Kinase 168 H (30-135) U/L Troponin I < 0.012 < 0.012 (0.01-0.034) ng/mL Total Protein 6.8 (6.3-8.2) g/dL Albumin 4.2 (3.5-5.0) g/dL Globulin 2.6 (1.7-4.1) g/dL Albumin/Globulin Ratio 1.6 (1.0-2.8) Lipase 168 (23-300) U/L Imaging Data Chest x-ray: My Impression: No acute cardiopulmonary process ECG Data Attestation: I personally reviewed and interpreted this ECG as follows: Interpretation: Sinus rhythm rate 63 CO interval 154 QRS 70 QTC 409 Q-wave noted in lead 3 only with T-wave inversion in lead 3 no other leads or ST changes no priors to compare MDM Narrative Medical decision making narrative: Patient is 69-year-old female presenting to day with chest discomfort radiating to her right side. She has no known coronary artery disease. She is actively vomiting. However she did not vomit very much. Blood work has been reviewed 2- troponins CBC does not show any leukocytosis or anemia, WBCs 5.2, hemoglobin 11.4, hematocrit 34.4 CMP electrolytes are stable no HEATHER bilirubin 0.7 AST 33 ALT 27 alk-phos 54 lipase 160 Patient given aspirin Protonix and Zofran and IV fluids Abdomen remained soft and nontender Patient's pain improved slowly. She has been up to the restroom a couple of times without any difficulty. She has a heart score of 4. At this time seems reasonable for outpatient workup. I discussed with her risks and strict return precautions. Discharge Plan Departure Patient Disposition: Home Clinical Impression: Atypical chest pain Instructions: DI for Atypical Chest Pain Activity Restrictions/Additional Instructions: *You have been diagnosed with atypical chest *What to do: At this time I do recommend that you have further outpatient testing including ZIO patch, echo and stress test please discuss with your primary care provider *Continue to take medications as directed *Follow up with your primary care provider in 2-3 days or call [phone] *Return to ER if you should have increasing chest pain shortness of breath or any new, worsening or concerning symptoms Prescriptions: No Action citalopram 10 mg tablet 10 mg PO DAILY Qty: 30 0RF alprazolam 0.5 mg tablet 0.5 mg PO DIRECTED PRN (Reason: Anxiety) Patient Comments: TAKE ONE TABLET BY MOUTH THREE TIMES DAILY NEEDED (DME) Resmed Airsense 10 CPAP Qty: 1 Dose Instruction: As directed Patient Comments: Pressure: 5-12 cmH2O DME: APR[facility] BEVERLY: 10/26/17 Rx Instructions: As directed Referrals: Clarissa Galvan PA-C [Primary Care Provider] - Stand Alone Forms: Patient Portal/API
[2024-05-05] MEDS: SODIUM CHLORIDE 0.9% 1,000 ML 1000 ML IV (04:29)
[2024-05-05] MEDS: ASPIRIN EC 325 MG TABLET PO (04:31)
[2024-05-05] MEDS: PANTOPRAZOLE 40 MG VIAL IV (04:31)
[2024-05-05] MEDS: ONDANSETRON 4 MG/2 ML INJ IV (04:31)
--- NOTE | 2024-05-05 04:40 | PC.NURSE ---
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
--- NOTE | 2024-05-05 05:44 | EKG_ITS ---
[facility] [address] [place] [address] Test Date: 2024-05-05 Pat Name: Rosa Mora Department: [facility] Room: Gender: Female Senior Android Software Engineer: annabel : 1955 Requested By: Order Number: [id number] Reading MD: Ben Ware MD Measurements Intervals [place] Rate: 59 P: 26 [place]: 154 QRS: -10 QRSD: 72 T: 9 QT: 432 QTc: 427 Interpretive Statements Sinus bradycardia Low voltage QRS Electronically Signed On 05-05-2024 21:34:22 PDT by Ben Ware MD
[2024-05-05 06:10] LABS: Troponin I < 0.012 ng/mL (0.01-0.034)
== END 2024-05-05 07:17 | disposition home or self-care (01) ==
PROVIDERS: Emergency Provider Emergency Medicine; PCP Student in an Organized Health Care Education/Training Program
DX: R07.89 Other chest pain (principal); R11.2 Nausea with vomiting, unspecified
CPT/HCPCS: 36415; 71045; 80053; 82550; 83690; 84484; 85025; 93005; 93010; 96361; 96374; 96375; 99284; J2405; J2470

== ENCOUNTER → 2024-07-23 07:53 | Outpatient (CLI) | payer MEDICARE, OTHER, SELFPAY ==
--- NOTE | 2024-07-23 | DI.MG.S_ITS ---
BILATERAL DIGITAL SCREENING MAMMOGRAM 3D/2D WITH CAD POST LUMPECTOMY: 07/23/2024 CLINICAL: Routine screening. Personal history of left breast cancer. Comparison is made to exams dated: 12/03/2021 mammogram, 03/19/2020 mammogram, and 12/14/2016 mammogram - [facility]. The breasts are heterogeneously dense, which may obscure small masses (category c / 51-75% glandular tissue). Current study was also evaluated with a Computer Aided Detection (CAD) system. There are benign post operative findings in the left breast. No significant masses, calcifications, or other findings are seen in either breast. There has been no significant interval change. IMPRESSION: BENIGN There is no mammographic evidence of malignancy. A 1 year screening mammogram is recommended. This exam was interpreted at Station ID: [id number]. NOTE: For mammograms, a report in lay terms will be sent to the patient. Approximately 15% of breast malignancies will not be visualized mammographically. In the management of a palpable breast mass, a negative mammogram must not discourage biopsy of a clinically suspicious lesion. Electronically Signed By: Krishna heaton/gonzales:07/23/2024 10:13:58 letter sent: Normal Exam ACR BI-RADS Category 2: Benign
== END ==
PROVIDERS: PCP Physician Assistant; Referring Provider Physician Assistant; Visit Provider Physician Assistant
DX: Z12.31 Encounter for screening mammogram for malignant neoplasm of breast (principal); Z85.3 Personal history of malignant neoplasm of breast; R92.333 Mammographic heterogeneous density, bilateral breasts
CPT/HCPCS: 77063; 77067